=== PATIENT | female | born 1980 | race American Indian/Alaskan Native ===

== ENCOUNTER → 2017-08-03 15:16 | Outpatient (CLI) | payer OTHER, MEDICAID, SELFPAY ==
[2017-08-03 23:20] LABS: Urine N gonorrhoeae NOT DETECTED
[2017-08-03 23:21] LABS: Urine Chlamydia NOT DETECTED
== END ==
PROVIDERS: Family Provider Family Medicine; PCP Family Medicine; Visit Provider Family Medicine
DX: Z30.430 Encounter for insertion of intrauterine contraceptive device (principal)
CPT/HCPCS: 87491; 87591

== ENCOUNTER 2017-09-22 09:48 | Outpatient (CLI) | payer OTHER, MEDICAID, SELFPAY ==
[2017-09-22] VITALS (9 sets, daily range): BP systolic 87–109; BP diastolic 44–82; PULSE 62–84; RESP 16; TEMP 36.4; O2SAT 97–100
--- NOTE | 2017-09-22 09:52 | DI.RAD.S_ITS ---
PROCEDURE: PAIN L/SI FACET INJ/BLK 1STL INDICATIONS: Facet Arthropathy FINDINGS: Fluoroscopic spot filming was performed to verify placement of spinal needles at the L4-5 and L5-S1 level(s), as labeled on the films. Appropriate location(s) of the needle tip(s) was confirmed by injection of iodinated contrast. IMPRESSION: Documentation of facet injections Dictated by: Jeremy Huizar M.D. on 09/22/2017 at 13:19 Approved by: Jeremy Huizar M.D. on 09/22/2017 at 13:21
--- NOTE | 2017-09-22 11:20 | PM.PROC.1 ---
Procedures Date/Time Date of procedure: 09/22/17 Time of procedure: 11:21 General Procedure description: POST OP DIAGNOSIS 1. FACET ARTHROPATHY PROCEDURES 1. BILATERAL- L5 and S1 MB BLOCKS PHYSICIAN: DO CARYN Major Mamta is referred by Dr. Soares for treatment of Bilateral Axial LBP. DESCRIPTION OF PROCEDURE Fluoroscopically guided, contrast-controlled bilateral L5 and S1 medial branch blocks with 0.5cc of 0.5% Marcaine. Following denial of allergy and review of potential side effects and complications, including, but not necessarily limited to, infection, allergic reaction, local tissue breakdown, nerve injury, paralysis, stroke and possible , the patient indicated that the patient understood and agreed to proceed. An informed consent document was signed by the patient, witnessed by a nurse, and placed in the patient's chart. Per the patient request, IV conscious sedation was administered via 5mg of Versed to patient comfort. The patient's vital signs were monitored throughout the procedure by both the nurse and the physician without significant fluctuation. The patient remained conversant throughout the procedure. In the prone position, following sterile prep and drape of the lumbar region, the right L5 and S1 anatomical location of the medial branch of the dorsal ramus was identified fluoroscopically. Subsequently an anesthetic skin wheal using 1% lidocaine solution was initiated at each of the anatomical spots. Subsequently then a 22-gauge 3.5-inch spinal needle was atraumatically introduced and advanced under fluoroscopic guidance at each of the corresponding sites at the right L5 and S1 MB. After negative aspiration, 0.2 cc of Isovue 200 was injected, confirming placement without vascular or intrathecal uptake. Subsequently then 0.5 cc of 0.5% Marcaine solution was injected at each of the corresponding sites at the right L5 and S1 medial branch locations. The identical procedure was replicated on the left. The patient tolerated the procedure well without signs or symptoms of complications. Post-procedure, the patient was monitored initiating provocative activities to measure the amount of relief from block of the facetogenic pain. The patient reported a VAS of 7 prior to the procedure and a post-procedure VAS of 1. It has been a pleasure to assist in the diagnostic and therapeutic care of your patient. Total Fluoroscopy Time: 24.8 seconds Total Conscious Sedation Time: 24min POST OP INSTRUCTIONS The patient was provided with a Pain Log to complete over the next several hours and subsequent days prior to the patient's follow up with the ordering physician. 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 The patient is aware, was provided, once again, with a Pain Log and will follow up with the referring physician for review and clinical correlation Palmer Guillory DO
[2017-09-22] MEDS: MIDAZOLAM 5 MG/5 ML VIAL IV (11:27)
[2017-09-22] MEDS: BUPIVACAINE 0.5% (PF) 30 ML VIAL 5 ML INJ (11:38)
[2017-09-22] MEDS: LIDOCAINE 1% 20 ML INJ 10 ML INJ (11:38)
[2017-09-22] MEDS: IOPAMIDOL 15 ML VIAL 3 ML INJ (11:38)
== END 2017-09-22 12:14 | disposition home or self-care (01) ==
PROVIDERS: Family Provider Family Medicine; PCP Family Medicine; Visit Provider Physical Medicine & Rehabilitation
DX: M51.27 Other intervertebral disc displacement, lumbosacral region (principal); M46.96 Unspecified inflammatory spondylopathy, lumbar region
CPT/HCPCS: 64493; 64494; 99152; 99153; J2250

== ENCOUNTER → 2018-03-14 13:35 | Outpatient (CLI) | payer OTHER, MEDICAID, SELFPAY ==
--- NOTE | 2018-03-14 13:37 | DI.RAD.S_ITS ---
PROCEDURE: XR LUMBAR SPINE MIN 4V INDICATIONS: low back pain TECHNIQUE: 3 views of the lumbar spine were acquired. COMPARISON: None. FINDINGS: Bones: No fracture or focal osseous destruction. Anatomic alignment. Diffuse facet arthropathy. Trace dextrocurvature. Mild narrowing of the disc spaces from L3-S1 Soft tissues: Overlying bowel gas pattern is normal. No suspicious soft tissue calcifications. Incidentally IUD noted. IMPRESSION: Mild multilevel lumbar degeneration from L3-S1. Diffuse facet arthropathy and mild dextrocurvature. No fracture. Dictated by: Pablito Neely M.D. on 03/14/2018 at 14:29 Approved by: Pablito Neely M.D. on 03/14/2018 at 14:31
== END ==
PROVIDERS: Family Provider Family Medicine; PCP Family Medicine; Visit Provider Family Medicine
DX: M51.16 Intervertebral disc disorders with radiculopathy, lumbar region (principal); M47.26 Other spondylosis with radiculopathy, lumbar region; M47.27 Other spondylosis with radiculopathy, lumbosacral region; M51.17 Intervertebral disc disorders with radiculopathy, lumbosacral region; M54.5 Low back pain; M46.96 Unspecified inflammatory spondylopathy, lumbar region
CPT/HCPCS: 72100

== ENCOUNTER 2018-04-27 07:07 | Outpatient (CLI) | payer OTHER, MEDICAID, SELFPAY ==
[2018-04-27] VITALS (12 sets, daily range): BP systolic 107–127; BP diastolic 73–91; PULSE 64–76; RESP 16–18; O2SAT 97–100
--- NOTE | 2018-04-27 07:10 | DI.RAD.S_ITS ---
PROCEDURE: PAIN L/S MED/LAT N RFA BILAT INDICATIONS: SPINAL STENOSIS FINDINGS: Fluoroscopic spot filming was performed to verify placement of spinal needles at the bilateral L 4-5 and L5-S1 nerve root level(s), as labeled on the films. Appropriate location(s) of the needle tip(s) was confirmed by injection of iodinated contrast. IMPRESSION: Successful needle tip localization at the expected position of the bilateral nerve root regions detailed above. Dictated by: Shayan Ochoa M.D. on 04/27/2018 at 12:08 Approved by: Shayan Ochoa M.D. on 04/27/2018 at 12:09
[2018-04-27] MEDS: MIDAZOLAM 5 MG/5 ML VIAL IV (08:45)
[2018-04-27] MEDS: fentaNYL 100 MCG/2 ML INJ IV (08:57)
[2018-04-27] MEDS: BUPIVACAINE 0.5% (PF) VIAL 5 ML INJ (09:10)
[2018-04-27] MEDS: LIDOCAINE 1% 20 ML INJ 10 ML INJ (09:11)
[2018-04-27] MEDS: BETAMETHASONE 30 MG/5 ML MDV 12 MG INJ (09:12)
--- NOTE | 2018-04-27 09:29 | PC.NURSE ---
ASSISTING PT OFF TABLE AND TRANSPORTING TO POST PROC AREA IN STABLE CONDITION
--- NOTE | 2018-04-27 09:35 | P.PCN_ITS ---
Procedures Date/Time Date of procedure: 04/27/18 Time of procedure: 09:31 General Procedure description: Procedure Note PREOP DIAGNOSIS 1. RECALCITRANT FACET ARTHROPATHY, POST OP DIAGNOSIS 1. RECALCITRANT FACET ARTHROPATHY, PROCEDURES 1. BILATERAL L5 MEDIAL BRANCH RADIOFREQUENCY NEUROTOMY AND BILATERAL S1 DORSAL RAMUS BRANCH RADIOFREQUENCY NEUROTOMY. PHYSICIAN: Palmer Guillory DO INDICATIONS: Mamta is referred by Dr. Jamila de la cruz of facet arthropathy. DESCRIPTION OF PROCEDURE Bilateral L5 medial branch radiofrequency neurotomy and bilateral S1 dorsal ramus branch radiofrequency neurotomy under fluoroscopy with conscious sedation. The patient is well known to this clinic having undergone previous facet injections with good but temporary relief. The patient has experienced appropriate, concordant relief with previous facet and median branch blocks but the patient's pain has been recalcitrant to further conservative measures. Therefore, based upon the patient's relief and persistent symptoms, the patient is considered an appropriate candidate for facet rhizotomy. All of the patient' s questions regarding the risks versus benefits of the procedure, including, but not limited to, bleeding, infection, temporary as well as lasting nerve injury, paralysis, stroke, and , as well treatment alternatives were answered to satisfaction. After obtaining informed consent, denial of pertinent drug allergies, as well as being made aware of the potential risks of bleeding, infection, spinal cord trauma, paralysis, temporary and permanent nerve damage, seizure, stroke, and possible , the patient was brought to the fluoroscopy suite and positioned prone on the fluoroscopy table. The lumbar region was prepped with Betadine and covered with a fenestrated drape in the usual sterile fashion. Appropriate monitors applied including pulse oximeter, pulse, and blood pressure for regular monitoring throughout the procedure. After review of previous anaesthesic history and IV conscious sedation the patient was deemed safe to proceed with todays procedure with IV conscious sedation as ASA class II designation. Safety time-out was performed to confirm patient ID, procedure to be performed and site of procedure. IV sedation was accomplished with a combination of 5mg Versed and 50mcg Fentanyl administered by the RN after DO order, titrated to patient comfort during the course of the procedure while the patient remained responsive to all verbal commands. After local infiltration using 1% lidocaine, under fluoroscopic guidance, a 10- cm RF insulated needle with a 10-mm active tip was positioned parallel to the junction of the bilateral sacral ala and the superior articulating process where the S1 dorsal ramus resides. Needle placement was confirmed with motor stimulation of .5v on the right; motor stimulation of .6v on the left, which produced local stimulation without radicular component. The stimulation was then increased to 1.5v with, once again, only local multifidus stimulation without radicular component. This was then followed by two discreet lesions performed at 80 degrees Celsius for 90 seconds each. The needle was then removed and the identical procedure was performed along the length of the bilateral L5 medial branch with motor stimulation at .7v on the right; motor stimulation at .6v on the left. The patient tolerated the procedure well without signs or symptoms of complications prior to transfer to the recovery area continued monitoring without incident. The patient was then transferred to the recovery area where they were observed for an appropriate period of time after the injection. The patient reported a VAS score of 9 prior to the procedure and a post- procedure VAS of 0. Total Fluoroscopy Time: 32.1 seconds Total Conscious Sedation Time: 46min POST OP INSTRUCTIONS The patient was provided a Pain Log to continue to record the patient's response to the target-specific procedure prior to the patient's follow-up visit with the referring physician. Additionally, specific post-injection care instructions and a contact number to our office were provided if concerns arise regarding possible complications associated with the procedure are suspected. Palmer Guillory DO Complications: none
--- NOTE | 2018-04-27 09:42 | PC.NURSE ---
pt returned from procedure awake and alert, able to move from w/c to chair on own. Resumed monitoring from Alisia GEIGER.
== END 2018-04-27 09:47 ==
LOC: RAD 07:08
PROVIDERS: Family Provider Family Medicine; PCP Family Medicine; Visit Provider Physical Medicine & Rehabilitation
DX: M47.817 Spondylosis without myelopathy or radiculopathy, lumbosacral region (principal)
CPT/HCPCS: 64635; 99152; 99153; J0702; J2250; J3010

== ENCOUNTER → 2018-10-04 14:22 | Outpatient (CLI) | payer OTHER, SELFPAY ==
--- NOTE | 2018-10-04 14:24 | DI.RAD.S_ITS ---
PROCEDURE: XR FOOT RT MIN 3V INDICATIONS: Right foot pain TECHNIQUE: 3 views of the foot were acquired. COMPARISON: None. FINDINGS: Bones: No fractures or dislocations. No suspicious bony lesions. Mild plantar calcaneal spurring. Soft tissues: No tibiotalar joint effusion. Achilles tendon appears normal. IMPRESSION: No acute bony injuries. Dictated by: Anitha Morley M.D. on 10/04/2018 at 14:51 Approved by: Anitha Morley M.D. on 10/04/2018 at 14:53
== END ==
PROVIDERS: Family Provider Family Medicine; PCP Family Medicine; Visit Provider Physician Assistant
DX: M79.671 Pain in right foot (principal); M77.31 Calcaneal spur, right foot
CPT/HCPCS: 73630

== ENCOUNTER → 2019-01-26 14:45 | Outpatient (CLI) | payer OTHER, SELFPAY ==
--- NOTE | 2019-01-26 | DI.RAD.S_ITS ---
PROCEDURE: XR HAND RT 2V INDICATIONS: pain TECHNIQUE: 3 views of the hand(s) acquired. COMPARISON: [facility], CR, XR WRIST RT 2V, 01/26/2019, 14:59. FINDINGS: Bones: No fractures or dislocations. Carpal bones are normally aligned. No suspicious bony lesions. Soft tissues: No suspicious soft tissue calcifications. IMPRESSION: No visualized acute fracture or dislocation. However, if clinical concern and/or pain persist, short interval imaging followup in 7-10 days is recommended, as occult injury cannot be definitively excluded. Dictated by: Ronel Horvath M.D. on 01/26/2019 at 17:53 Approved by: Ronel Horvath M.D. on 01/26/2019 at 17:54
--- NOTE | 2019-01-26 | DI.RAD.S_ITS ---
PROCEDURE: XR WRIST LT 2V INDICATIONS: pain TECHNIQUE: 2 views of the wrist were acquired. COMPARISON: [facility], CR, XR HAND LT 2V, 01/26/2019, 14:59. FINDINGS: Bones: No fractures or dislocations. No suspicious bony lesions. Scaphoid view: Not obtained Soft tissues: No suspicious soft tissue calcifications. IMPRESSION: No visualized acute fracture or dislocation. However, if clinical concern and/or pain persist, short interval imaging followup in 7-10 days is recommended, as occult injury cannot be definitively excluded. Dictated by: Ronel Horvath M.D. on 01/26/2019 at 17:53 Approved by: Ronel Horvath M.D. on 01/26/2019 at 17:53
--- NOTE | 2019-01-26 | DI.RAD.S_ITS ---
PROCEDURE: XR WRIST RT 2V INDICATIONS: pain TECHNIQUE: 2 views of the wrist were acquired. COMPARISON: [facility], CR, XR HAND RT 2V, 01/26/2019, 14:59. FINDINGS: Bones: No fractures or dislocations. No suspicious bony lesions. Scaphoid view: Not obtained Soft tissues: No suspicious soft tissue calcifications. IMPRESSION: No visualized acute fracture or dislocation. However, if clinical concern and/or pain persist, short interval imaging followup in 7-10 days is recommended, as occult injury cannot be definitively excluded. Dictated by: Ronel Horvath M.D. on 01/26/2019 at 17:52 Approved by: Roenl Horvath M.D. on 01/26/2019 at 17:53
--- NOTE | 2019-01-26 | DI.RAD.S_ITS ---
PROCEDURE: XR HAND LT 2V INDICATIONS: CONSTIPATION UNSPECIFIED TECHNIQUE: 2 views of the hand(s) acquired. COMPARISON: [facility], CR, XR WRIST LT 2V, 01/26/2019, 14:59. FINDINGS: Bones: No fractures or dislocations. Carpal bones are normally aligned. No suspicious bony lesions. Soft tissues: No suspicious soft tissue calcifications. IMPRESSION: No visualized acute fracture or dislocation. However, if clinical concern and/or pain persist, short interval imaging followup in 7-10 days is recommended, as occult injury cannot be definitively excluded. Dictated by: Ronel Horvath M.D. on 01/26/2019 at 17:54 Approved by: Ronel Horvath M.D. on 01/26/2019 at 17:54
--- NOTE | 2019-01-26 | DI.RAD.S_ITS ---
PROCEDURE: XR ABDOMEN 1V INDICATIONS: CONSTIPATION UNSPECIFIED TECHNIQUE: One view of the abdomen acquired. COMPARISON: [facility], CT, CT ABDOMEN PELVIS WITH CONTRAST, 01/25/2017, 17:49. FINDINGS: Surgical changes and devices: Intrauterine device is present to the left of midline within the lower pelvis. Bowel: Bowel gas pattern is normal. Moderate stool. Soft tissues: No suspicious abdominal calcifications. Visualized solid organ contours appear normal in size. Bones: No suspicious bony lesions. IMPRESSION: Moderate stool without obstruction. Dictated by: Ronel Horvath M.D. on 01/26/2019 at 17:54 Approved by: Ronel Horvath M.D. on 01/26/2019 at 17:55
== END ==
PROVIDERS: Family Provider Family Medicine; PCP Family Medicine; Visit Provider Physician Assistant
DX: K59.00 Constipation, unspecified (principal); M25.532 Pain in left wrist; M25.531 Pain in right wrist; M79.641 Pain in right hand
CPT/HCPCS: 73100; 73120; 74018

== ENCOUNTER 2019-08-26 05:50 | Emergency (ER) | payer OTHER, MEDICAID, SELFPAY ==
[2019-08-26 05:59] VITALS: BP 139/80; PULSE 79; RESP 18; TEMP 37.1; O2SAT 98
--- NOTE | 2019-08-26 05:59 | ED_ITS ---
HPI - General Adult General Chief complaint: Urogenital-Female Stated complaint: right side pain thinks uti Time Seen by Provider: 08/26/19 05:58 History of Present Illness HPI narrative: 38-year-old woman with a history of frequent urinary tract infections who complains of right-sided flank/abdominal/back pain intermittently for about 2 weeks and over the last 2 days it has began hurting more in the right flank and radiating to the right groin with dysuria developing. She states she has had similar symptoms and sometimes it will go away and sometimes it and that being a bladder infection. Most recently she was seen at [facility] approximately 6 months ago and was treated with a single dose of medicine that she drank as a liquid. She denies hematuria, no significant change to vaginal discharge, no deep pelvic pain, no new sexual partners. She denies fever, cough, chills, diarrhea but does note intermittent constipation, worse in the last week. Related Data Previous Rx's Medication Instructions Recorded tramadol 50 mg tablet 50 mg PO TID PRN #60 tab 03/24/18 diazepam [Valium] 10 mg PO BEDTIME PRN #10 tab 04/27/18 tramadol 50 mg PO Q8H PRN #60 tab 04/27/18 albuterol sulfate 90 mcg/actuation 1 inh INHALATION Q4-6H PRN #18 gram 05/28/18 aerosol inhaler benzonatate 100 mg capsule 100 mg PO BEDTIME #20 cap 05/28/18 sulfamethoxazole-trimethoprim 1 tab PO BID #14 tab 08/26/19 Allergies Allergy/AdvReac Type Severity Reaction Status Date / Time No Known Drug Allergies Allergy Verified 10/04/18 15:12 Review of Systems Review of Systems Narrative: Pertinent positive and negative findings as per HPI Remainder of review of systems is otherwise unremarkable for Constitutional: Fevers, chills, weakness ENT: No sore throat, neck pain, ear pain CV: Chest pain, palpitations, dyspnea on exertion Respiratory: Cough, wheeze, dyspnea MS: Muscle weakness, numbness, joint swelling or warmth Skin: Rashes, nonhealing lesions Neuro: Syncope, dizziness, tingling Psych: Depression, anxiety, suicidal ideation Patient History Medical History (Updated 08/26/19 @ 06:45 by Mariana Romo MD) Bulimia (Chronic) Cardiac arrhythmia (Chronic) Depression (Chronic) Frequent UTI (Chronic) Herniated nucleus pulposus, L5-S1 (Inactive) Migraine (Acute) Reactive airway disease (Acute) Scoliosis (Chronic) Surgical History Anesthesia (Resolved) History of tonsillectomy (Resolved 2005) Status post tubal ligation (Resolved 04/21/06) Social History pets and animals: No education level: high school working smoke detector in home: Yes fire extinguisher in home: Yes carbon monox detector in home: Yes firearms in home: No Smoking Status: Former smoker alcohol intake: current substance use type: does not use during the past year weight has: decreased > 10 lbs well-balanced diet: rarely or never daily servings fruits/ve-1 caffeine: Yes (1-2 caffeine drinks per day) eating out: 1-3 times/week Type(s) of exercise: walking and other frequency: daily Smoking Status: Former smoker Exam Narrative Exam Narrative: General: Healthy appearing, in no acute distress. Able to give a complete and coherent history. Well-nourished well-developed HEENT: Moist mucous membranes, normal sclera with reactive pupils, Neck: No JVD, supple Respiratory: Lungs are clear to auscultation, no wheezing no rales no rhonchi. Full and symmetrical air movement Cardiac: Regular rate and rhythm no murmurs no bruits Abdomen: Soft, mild suprapubic tenderness, good bowel tones, mild right flank/paraspinous pain Skin: Warm and dry, no rashes Neurologic: Grossly neurologically intact with no obvious asymmetries or abnormalities Extremities: No trauma, well perfused Psych: Cooperative, appropriate insight and affect Initial Vital Signs Initial Vital Signs: Vital Signs Temperature 98.7 F 08/26/19 05:59 Pulse Rate 79 08/26/19 05:59 Respiratory Rate 18 08/26/19 05:59 Blood Pressure 139/80 08/26/19 05:59 Pulse Oximetry 98 08/26/19 05:59 Course Orders Ordered: ED Orders 08/26/19 06:00 Urinalysis and Microscopic Stat Urine Culture Stat Discontinued Medications Trimethoprim/Sulfamethoxazole (Bactrim Ds) 1 tab PO NOW ONE Stop: 08/26/19 06:42 Vital Signs Vital signs: Vital Signs - 8 hr 08/26/19 05:59 Temperature 98.7 F Pulse Rate 79 Respiratory Rate 18 Blood Pressure 139/80 Pulse Oximetry 98 Medical Decision Making Medical Records Medical records reviewed: Yes I reviewed the patient's medical records. Lab Data Lab results narrative: Urinalysis has leukocyte esterase nitrates and blood. Labs: Lab Results 08/26/19 Range/Units 06:00 Urine Color Yellow Urine Appearance Slightly cloudy Urine pH 7.0 (4.5-8.0) Ur Specific Irving 1.010 (1.000-1.035) Urine Protein Negative (Negative) Urine Glucose (UA) Negative (Negative) g/dL Urine Ketones Negative (NEGATIVE) Urine Occult Blood 1+ H (Negative) Urine Nitrate Negative (Negative) Urine Bilirubin Negative (NEGATIVE) Urine Urobilinogen 0.2 (0.2) E.U./dL Ur Leukocyte Esterase 3+ H (NEGATIVE) Urine RBC 0-1/hpf (0-5/HPF) Urine WBC 1-5/hpf (0-5/HPF) Ur Squamous Epith Cells 1-5 /hpf (0-5/HPF) Urine Bacteria Few (2-10) H (None) Ur Culture Indicated? Specimen cultured MDM Narrative Medical decision making narrative: 38-year-old woman with flank pain that on clinical exam is more tender in the right paraspinous area and is reproducible with paraspinous muscle palpation than actual flank pain. Suspect musculoskeletal etiology. She also has what looks like a simple UTI that is been present for approximately 2 days. No fevers or other symptoms to suggest pyelonephritis. Will treat with 5 days of Septra. She is safe for home discharge Discharge Plan Departure Patient Disposition: Home Clinical Impression: Cystitis Back pain Qualifiers: Back pain location: back pain in other location Chronicity: chronic Qualified Code(s): M54.9 - Dorsalgia, unspecified Instructions: DI for Urinary Tract Infection (UTI) Activity Restrictions/Additional Instructions: Thank you for coming in today Your urine does in fact look like you have a bladder infection. I am going to place you on 5 days of Septra, an antibiotic, to alleviate the symptoms. 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 The pain that you are noticing in your neck and shoulders is likely musculoskeletal and related to the stress of work recently. The lower back pain is also likely musculoskeletal but may be exacerbated by your chronic constipation. Please do take the laxative that you have at home to see if that can help. If you develop new or worsening symptoms, fevers or have other concerns, please return to the emergency room and I am happy to re-evaluate I hope these next 3 days off will help you catch up on your sleep, relax a bit to help with the back pain. The a UTI symptoms should be significantly improved within 1-2 days on the antibiotics Prescriptions: New sulfamethoxazole-trimethoprim 800-160 mg tablet 1 tab PO BID Qty: 14 RF: 0 No Action benzonatate 100 mg capsule 100 mg PO BEDTIME Qty: 20 RF: 0 albuterol sulfate 90 mcg/actuation HFA aerosol inhaler 1 inh INHALATION Q4-6H PRN (Reason: shortness of breath) Qty: 18 RF: 0 tramadol 50 mg tablet 50 mg PO Q8H PRN (Reason: pain) Qty: 60 RF: 1 diazepam [Valium] 10 mg tablet 10 mg PO BEDTIME PRN (Reason: muscle spasm) Qty: 10 RF: 0 tramadol 50 mg tablet 50 mg PO TID PRN (Reason: pain) Qty: 60 RF: 1 Referrals: Jazzmine Soares MD [Primary Care Provider] -
[2019-08-26 06:21] LABS: Bilirubin Urine UA NEGATIVE (NEGATIVE); Color Urine UA YELLOW; Glucose Urine UA NEGATIVE (Negative); Ketones Urine UA NEGATIVE (NEGATIVE); Leukocyte Esterase Urine UA 3+ (NEGATIVE); Nitrite Urine UA NEGATIVE (Negative); Occult Blood Urine UA 1+ (Negative); Protein Urine UA NEGATIVE (Negative); Urobilinogen Urine UA 0.2 E.U./dL (0.2)
[2019-08-26 06:37] LABS: Appearance Urine UA Slightly Cloudy
[2019-08-26 06:38] LABS: Bacteria Urine Few (2-10); Culture Indicated Urine Specimen Cultured; RBC Urine 0-1/HPF (0-5/HPF); Squamous Epithelial Cell Urine 1-5 /HPF (0-5/HPF); WBC Urine 1-5/HPF (0-5/HPF)
[2019-08-26] MEDS: TRIMETH/SULFA 160/800 (DS) TABLET 1 TAB PO (07:30)
[2019-08-26 07:50] VITALS: BP 144/72; PULSE 68; RESP 16; O2SAT 98
== END 2019-08-26 07:50 | disposition home or self-care (01) ==
PROVIDERS: Emergency Provider Emergency Medicine; Family Provider Family Medicine; PCP Family Medicine
DX: N30.90 Cystitis, unspecified without hematuria (principal); M54.9 Dorsalgia, unspecified
CPT/HCPCS: 81001; 87077; 87086; 87147; 99283

== ENCOUNTER → 2019-09-05 13:44 | Outpatient (CLI) | payer OTHER, MEDICAID, SELFPAY | PROVIDERS: Family Provider Family Medicine; PCP Family Medicine; Visit Provider Family Medicine | DX: M54.9 Dorsalgia, unspecified (principal) | CPT/HCPCS: 87086 ==

== ENCOUNTER → 2019-09-07 14:11 | Outpatient (CLI) | payer OTHER, MEDICAID, SELFPAY ==
[2019-09-07 14:59] LABS: Appearance Urine UA CLEAR; Bilirubin Urine UA NEGATIVE (NEGATIVE); Color Urine UA YELLOW; Glucose Urine UA NEGATIVE (Negative); Ketones Urine UA NEGATIVE (NEGATIVE); Leukocyte Esterase Urine UA 1+ (NEGATIVE); Nitrite Urine UA NEGATIVE (Negative); Occult Blood Urine UA 2+ (Negative); Protein Urine UA NEGATIVE (Negative); Urobilinogen Urine UA 0.2 E.U./dL (0.2)
[2019-09-07 15:02] LABS: Amorphous Sediment Urine 1+; Bacteria Urine Few (2-10); Culture Indicated Urine Specimen Cultured; Mucus Urine 1+ (Negative); RBC Urine 1-5/HPF (0-5/HPF); Squamous Epithelial Cell Urine 1-5 /HPF (0-5/HPF); WBC Urine 5-10/HPF (0-5/HPF)
== END ==
PROVIDERS: Family Provider Family Medicine; PCP Family Medicine; Referring Provider Family Medicine; Visit Provider Family Medicine
DX: R10.9 Unspecified abdominal pain (principal); R31.9 Hematuria, unspecified
CPT/HCPCS: 81001; 87086

== ENCOUNTER → 2019-09-15 08:28 | Outpatient (CLI) | payer OTHER, MEDICAID, SELFPAY ==
--- NOTE | 2019-09-15 08:30 | DI.US.S_ITS ---
PROCEDURE: US ABDOMEN COMPLETE INDICATIONS: RIGHT LOWER QUADRANT PAIN TECHNIQUE: Real-time scanning was performed of the abdominal and retroperitoneal organs, with image documentation. COMPARISON: CT, CT ABDOMEN PELVIS WITH CONTRAST, 01/25/2017, 17:49. FINDINGS: Liver: Liver is diffusely increased in echogenicity. No focal hepatic abnormalities identified. Normal hepatic size. Gallbladder: No gallstones identified. Normal gallbladder wall. No pericholecystic fluid. Negative sonographic Archibald sign. Biliary ducts: Intrahepatic bile ducts are non-dilated. Extrahepatic bile duct caliber measures 4.6 mm. Normal is 6-7 mm or less in diameter, or 10 mm or less post-cholecystectomy. Pancreas: Not well-visualized. Spleen: Spleen is normal in size and homogeneous in echotexture. Kidneys: Kidneys are normal in size and echotexture. Right kidney measures 11.6 cm long; left kidney measures 12.5 cm long. No hydronephrosis or nephrolithiasis. No solid masses. Aorta: Visualized aorta is normal in caliber at less than 3 cm. Iliacs: Proximal common iliac arteries are normal in caliber at less than 2.5 cm. IVC: Intrahepatic inferior vena cava is patent. Miscellaneous: No free abdominal fluid. IMPRESSION: Increased hepatic echogenicity noted possibly related to hepatic steatosis but other sources of hepatocellular disease cannot be excluded. Recommend clinical correlation. Dictated by: Mariano MADDEN Interpreted: Shruthi Herring MD on 09/15/2019 at 9:50 Approved by: Shruthi Herring MD, PhD on 09/15/2019 at 14:30
--- NOTE | 2019-09-15 08:30 | DI.US.S_ITS ---
PROCEDURE: US PELVIC COMPLETE INDICATIONS: RIGHT LOWER QUADRANT PAIN TECHNIQUE: Real-time scanning was performed of the pelvic organs, with image documentation. Additional endovaginal scanning was necessary due to incomplete visualization of the adnexal and endometrial structures by transabdominal scanning. COMPARISON: [facility], CT, KIDNEY/ URETER/BLADDER, 08/08/2015, 10:51. [facility], CT, ABDOMEN/PELVIS WITH CONTRAST, 07/14/2016, 21:21. [facility], US, US ABDOMEN COMPLETE, 09/15/2019, 8:39. [facility], US, PELVIC COMPLETE, 10/30/2016, 16:19. FINDINGS: Transabdominal scanning: No pathologic free abdominal or pelvic fluid. On the accompanying abdominal ultrasound, the kidneys demonstrate a normal appearance. Endovaginal scanning: Uterus: Uterus is normal in size at 9 x 4.3 x 4.3 cm. The endometrium measures 8 mm in combined thickness. An IUD is seen at its expected location. Ovaries: The left ovary is not seen. The right ovary measures 3.3 x 3.3 x 3.9 cm. Within the right ovary, there is a 2.8 x 2.5 x 2.4 cm cyst with a mural nodule seen. No adnexal masses are seen. IMPRESSION: No imaging explanation is found for this patient's presenting history of right lower quadrant pain. The right ovary demonstrates a mildly complicated cyst in demonstrates a mural nodule. At clinical discretion, a followup pelvic ultrasound is suggested in 6 weeks to assure resolution/ improvement. An IUD is seen at its expected location. Left ovary not seen. Dictated by: Tnoy Porter M.D. on 09/15/2019 at 9:10 Approved by: Tony Porter M.D. on 09/15/2019 at 9:13
== END ==
PROVIDERS: Family Provider Family Medicine; PCP Family Medicine; Referring Provider Family Medicine; Visit Provider Family Medicine
DX: R31.9 Hematuria, unspecified (principal); R10.31 Right lower quadrant pain; N83.291 Other ovarian cyst, right side; Z97.5 Presence of (intrauterine) contraceptive device
CPT/HCPCS: 76700; 76830; 76856

== ENCOUNTER → 2019-09-18 13:14 | Outpatient (CLI) | payer OTHER, MEDICAID, SELFPAY ==
[2019-09-18 13:18] LABS: Bacteria Urine None Seen
[2019-09-18 13:25] LABS: Appearance Urine UA CLEAR; Bilirubin Urine UA NEGATIVE (NEGATIVE); Color Urine UA YELLOW; Glucose Urine UA NEGATIVE (Negative); Ketones Urine UA NEGATIVE (NEGATIVE); Leukocyte Esterase Urine UA 1+ (NEGATIVE); Nitrite Urine UA NEGATIVE (Negative); Occult Blood Urine UA TRACE-INTACT (Negative); Protein Urine UA NEGATIVE (Negative); Specific Gravity Urine UA 1.015 (1.000-1.035); Urobilinogen Urine UA 0.2 E.U./dL (0.2)
[2019-09-18 13:36] LABS: Culture Indicated Urine Cult Not Indicated; RBC Urine 1-5/HPF (0-5/HPF); Squamous Epithelial Cell Urine 5-10 /HPF (0-5/HPF); WBC Urine 5-10/HPF (0-5/HPF)
== END ==
PROVIDERS: Family Provider Family Medicine; PCP Family Medicine; Visit Provider Obstetrics & Gynecology
DX: R10.2 Pelvic and perineal pain (principal); R82.79 Other abnormal findings on microbiological examination of urine; R30.0 Dysuria
CPT/HCPCS: 81001; 87086

== ENCOUNTER 2019-10-01 12:47 | Emergency (ER) | payer OTHER, MEDICAID, SELFPAY ==
[2019-10-01 12:58] VITALS: BP 125/91; PULSE 89; RESP 16; TEMP 36.1; O2SAT 98; BMI 39.6
--- NOTE | 2019-10-01 13:22 | ED.EAR ---
HPI - Ear Problem General Chief complaint: Ear Stated complaint: Left Side Face Swelling and Pain Time Seen by Provider: 10/01/19 12:58 Source: patient Mode of arrival: Ambulatory Limitations: no limitations History of Present Illness HPI Narrative: The patient is a 38-year-old female who presents with sudden onset of left-sided facial and your swelling. She does suffer from bulimia states that she actually does pretty well she made herself vomit but she says she can do it without forcing it she vomited 20 minutes prior to the facial swelling. She says she was lying on the couch when suddenly she felt left side of her face to swell and she felt some numbness and tingling. Her children a saw that her ear was swollen as well. She tried to put a Q-tip in her ear and was unable to. She at no time had any difficulty breathing swallowing or speaking. She says it seems to be improving but she still has some tingling and can feel that it is a little bit swollen. She continues to breathe easy and manage her own secretions MD Complaint: ear pain Location: left ear Related Data Home Medications Medication Instructions Recorded Confirmed levonorgestrel 20 mcg/24 hours (5 INTRAUTERINE 09/18/19 09/18/19 yrs) 52 mg intrauterine device tamsulosin 0.4 mg capsule 0.4 mg PO DAILY 09/18/19 09/18/19 Previous Rx's Medication Instructions Recorded albuterol sulfate 90 mcg/actuation 1 inh INHALATION Q4-6H PRN #18 gram 05/28/18 aerosol inhaler Allergies Allergy/AdvReac Type Severity Reaction Status Date / Time No Known Drug Allergies Allergy Verified 10/01/19 12:57 Review of Systems Review of Systems ROS Unobtainable: All systems reviewed & are unremarkable except as noted in HPI and below Constitutional Constitutional: Denies chills, Denies fever(s), Denies lethargy and Denies weakness Eyes Eyes: Denies blurry vision, Denies exophthalmos and Denies diplopia ENT Ears, Nose, Mouth, and Throat: Reports as per HPI Cardiovascular Cardiovascular: Denies chest pain, Denies irregular heart rhythm, Denies lightheadedness, Denies palpitations, Denies dyspnea, Denies dyspnea on exertion and Denies orthopnea Respiratory Respiratory: Denies cough, Denies dyspnea, Denies dyspnea on exertion and Denies wheezing Gastrointestinal Gastrointestinal: Denies abdominal pain, Denies change in bowel habits, Denies diarrhea, Denies nausea and Denies vomiting Integumentary/Breasts Skin/Breast: Denies pruritus, Denies erythema, Denies rash and Denies wounds Neurologic Neurologic: Denies weakness Endocrine Endocrine: Denies palpitations Allergic/Immunologic Allergic/Immunologic: Denies wheezing Patient History Medical History Bulimia (Chronic) Cardiac arrhythmia (Chronic) Depression (Chronic) Frequent UTI (Chronic) Herniated nucleus pulposus, L5-S1 (Inactive) Migraine (Acute) Reactive airway disease (Acute) Scoliosis (Chronic) Surgical History Anesthesia (Resolved) History of tonsillectomy (Resolved 2005) Status post tubal ligation (Resolved 04/21/06) Social History pets and animals: No education level: high school working smoke detector in home: Yes fire extinguisher in home: Yes carbon monox detector in home: Yes firearms in home: No Smoking Status: Former smoker alcohol intake: current substance use type: does not use during the past year weight has: decreased > 10 lbs well-balanced diet: rarely or never daily servings fruits/ve-1 caffeine: Yes (1-2 caffeine drinks per day) eating out: 1-3 times/week Type(s) of exercise: walking and other frequency: daily Smoking Status: Former smoker alcohol intake frequency: a few times a month Substance Use Type: marijuana Exam Initial Vital Signs Initial Vital Signs: Vital Signs Temperature 97 F L 10/01/19 12:58 Pulse Rate 89 10/01/19 12:58 Respiratory Rate 16 10/01/19 12:58 Blood Pressure 125/91 H 10/01/19 12:58 Pulse Oximetry 98 10/01/19 12:58 GENERAL: Well-appearing, well-nourished and in no acute distress. HEENT: Head atraumatic,EOMI, pupils reactive, minimal left-sided facial swelling, managing own secretions EARS: Tympanic membranes visualized, no erythema or bulging, no hemotympanum CARDIOVASCULAR: Regular rate and rhythm without murmurs, rubs or gallops. RESPIRATORY: Breath sounds equal bilaterally, no wheezes rales or rhonchi. ABDOMEN: Soft, nontender. Normoactive bowel sounds all 4 quadrants. No guarding or rebound. EXTREMITIES: Normal range of motion, no clubbing or edema. Neurovascularly intact NEUROLOGICAL: Alert and oriented x4.Normal gait and speech SKIN: Warm, dry, no laceration, no petechiae, no rashes or lesions. Course Orders Ordered: Discontinued Medications Ibuprofen (Advil) 800 mg PO NOW ONE Stop: 10/01/19 13:24 Last Admin: 10/01/19 13:30 Dose: 800 mg Documented by: RENALDO Vital Signs Vital signs: Vital Signs - 8 hr 10/01/19 12:58 Temperature 97 F L Pulse Rate 89 Respiratory Rate 16 Blood Pressure 125/91 H Pulse Oximetry 98 Medical Decision Making [facility] Narrative Medical decision making narrative: Patient has minimal swelling to the left side of her face she has no airway compromise or difficulty swallowing. Something happened suddenly and seems to be improving. Possible inflammatory response. She is given a dose ibuprofen. She also is apparently on antibiotics for UTI and is scheduled to have an outpatient CT for possible kidney stone. She says that she denies any rash I do not think this to be an allergic reaction, seeing as though it is only 1 sided and improving so quickly. Discharge Plan Departure Patient Disposition: Home Clinical Impression: Facial swelling Discharge Date/Time: 10/01/19 13:50 Instructions: DI for General Allergic Reactions Activity Restrictions/Additional Instructions: *You have been diagnosed with facial swelling *What to do: Unclear exactly what is causing your facial swelling, however it seems to be improving. *Continue to take medications as directed *Follow up with your primary care provider in 2-3 days *Return to ER if you should have increased swelling difficulty swallowing, difficulty breathing or any new, worsening or concerning symptoms Prescriptions: No Action albuterol sulfate 90 mcg/actuation HFA aerosol inhaler 1 inh INHALATION Q4-6H PRN (Reason: shortness of breath) Qty: 18 RF: 0 Mirena 20 mcg/24 hours (5 yrs) 52 mg intrauterine device intrauterine RF: 0 tamsulosin 0.4 mg capsule 0.4 mg PO DAILY RF: 0 Referrals: Jazzmine Soares MD [Primary Care Provider] -
[2019-10-01] MEDS: IBUPROFEN 400 MG TABLET 800 MG PO (13:30)
== END 2019-10-01 13:50 | disposition home or self-care (01) ==
PROVIDERS: Emergency Provider Emergency Medicine; Family Provider Family Medicine; PCP Family Medicine
DX: R22.0 Localized swelling, mass and lump, head (principal); H92.02 Otalgia, left ear
CPT/HCPCS: 99281; 99282

== ENCOUNTER → 2019-10-13 09:39 | Outpatient (CLI) | payer OTHER, MEDICAID, SELFPAY ==
[2019-10-13 10:42] LABS: Appearance Urine UA SL CLOUDY; Bilirubin Urine UA NEGATIVE (NEGATIVE); Color Urine UA YELLOW; Glucose Urine UA NEGATIVE (Negative); Ketones Urine UA NEGATIVE (NEGATIVE); Leukocyte Esterase Urine UA 2+ (NEGATIVE); Nitrite Urine UA NEGATIVE (Negative); Occult Blood Urine UA 2+ (Negative); Protein Urine UA TRACE (Negative); Specific Gravity Urine UA 1.025 (1.000-1.035); Urobilinogen Urine UA 0.2 E.U./dL (0.2)
[2019-10-13 11:15] LABS: Bacteria Urine Many (>30); Mucus Urine 2+ (Negative); RBC Urine 1-5/HPF (0-5/HPF); Squamous Epithelial Cell Urine 10-30 /HPF (0-5/HPF); WBC Urine 5-10/HPF (0-5/HPF)
== END ==
PROVIDERS: Family Provider Family Medicine; PCP Family Medicine; Referring Provider Family Medicine; Visit Provider Family Medicine
DX: R30.0 Dysuria (principal); R35.0 Frequency of micturition; R39.15 Urgency of urination; R31.29 Other microscopic hematuria
CPT/HCPCS: 81001; 87086

== ENCOUNTER → 2019-10-16 09:30 | Outpatient (CLI) | payer OTHER, MEDICAID, SELFPAY ==
--- NOTE | 2019-10-16 09:31 | DI.CT.S_ITS ---
PROCEDURE: CT KIDNEY URETER BLADDER (KUB) INDICATIONS: hematuria, pain TECHNIQUE: Noncontrast 5 mm thick sections acquired from the diaphragms to the symphysis. 5 mm thick coronal and sagittal reformats were then performed. For radiation dose reduction, the following was used: automated exposure control, adjustment of mA and/or kV according to patient size. COMPARISON: [facility], US, US PELVIC COMPLETE, 09/15/2019, 9:02. [facility], US, US ABDOMEN COMPLETE, 09/15/2019, 8:39. [facility], CR, XR ABDOMEN 1V, 01/26/2019, 14:59. [facility], CT, KIDNEY/ URETER/BLADDER, 08/08/2015, 10:51. FINDINGS: Image quality: Excellent. Lung bases: Lung bases are clear. Heart size is normal. Urinary system: Both kidneys are normal in size. No kidney stones. No hydronephrosis or perinephric fat stranding. Both ureters appear non-dilated throughout their expected courses. Bladder wall thickness is normal; no calcified bladder stones. Other solid organs: Liver is normal in size. Gallbladder appears normal . Pancreas is normal in contours. Spleen is normal in size. No adrenal nodules. Peritoneum and bowel: Unenhanced bowel loops demonstrate normal wall thickness and caliber. No free fluid or air. Nodes and vessels: No retroperitoneal or mesenteric adenopathy by size criteria. Aorta and inferior vena cava are normal in caliber. Abdominal wall: No ventral hernias. Pelvis: No free pelvic fluid. No inguinal hernias or adenopathy. A centrally positioned IUD is noted within the endometrial space Bones: No suspicious bony lesions. No vertebral body compression fractures. . IMPRESSION: A urinary tract stone is not seen, a source of hematuria and pain is not identified. There is a centrally positioned IUD within the endometrial space. No ovarian pathology is identified. Dictated by: Shayan Ochoa M.D. on 10/16/2019 at 12:38 Approved by: Shayan Ochoa M.D. on 10/16/2019 at 12:52
== END ==
PROVIDERS: Family Provider Family Medicine; PCP Family Medicine; Referring Provider Family Medicine; Visit Provider Family Medicine
DX: R31.29 Other microscopic hematuria (principal); M54.9 Dorsalgia, unspecified; R10.9 Unspecified abdominal pain; G89.29 Other chronic pain; Z97.5 Presence of (intrauterine) contraceptive device
CPT/HCPCS: 74176

== ENCOUNTER → 2019-10-20 07:56 | Outpatient (CLI) | payer OTHER, MEDICAID, SELFPAY ==
[2019-10-20 09:26] LABS: Appearance Urine UA CLEAR; Bilirubin Urine UA NEGATIVE (NEGATIVE); Color Urine UA YELLOW; Glucose Urine UA NEGATIVE (Negative); Ketones Urine UA NEGATIVE (NEGATIVE); Leukocyte Esterase Urine UA 1+ (NEGATIVE); Nitrite Urine UA NEGATIVE (Negative); Occult Blood Urine UA 1+ (Negative); Protein Urine UA NEGATIVE (Negative); Specific Gravity Urine UA <=1.005 (1.000-1.035); Urobilinogen Urine UA 0.2 E.U./dL (0.2)
[2019-10-20 09:28] LABS: pH Urine UA 6.5 (4.5-8.0)
[2019-10-20 10:02] LABS: Bacteria Urine Few (2-10); Culture Indicated Urine Specimen Cultured; Mucus Urine 1+ (Negative); RBC Urine 0-1/HPF (0-5/HPF); Squamous Epithelial Cell Urine 1-5 /HPF (0-5/HPF); WBC Urine 1-5/HPF (0-5/HPF)
[2019-10-25 13:36] LABS: Chlamydia trachomatis Negative (Negative); Mycoplasma genitalium Negative (Negative); Neisseria gonorrhoeae Negative (Negative)
== END ==
PROVIDERS: Family Provider Family Medicine; PCP Family Medicine; Referring Provider Family Medicine; Visit Provider Family Medicine
DX: R30.0 Dysuria (principal); R31.29 Other microscopic hematuria; R10.9 Unspecified abdominal pain
CPT/HCPCS: 81001; 87070; 87077; 87086; 87147; 87205; 87210; 87491; 87591

== ENCOUNTER → 2019-11-01 09:35 | Outpatient (CLI) | payer OTHER, MEDICAID, SELFPAY ==
--- NOTE | 2019-11-01 09:36 | DI.US.S_ITS ---
PROCEDURE: US PELVIC COMPLETE INDICATIONS: OVARIAN CYST TECHNIQUE: Real-time scanning was performed of the pelvic organs, with image documentation. Additional endovaginal scanning was necessary due to incomplete visualization of the adnexal and endometrial structures by transabdominal scanning. COMPARISON: [facility], , PELVIC COMPLETE, 09/15/2019, 9:02. FINDINGS: Transabdominal scanning: Limited scanning through the kidneys shows no hydronephrosis. No pathologic free abdominal or pelvic fluid. Endovaginal scanning: Uterus: Uterus is normal in size at 7.3 x 4 x 4.1 cm. The endometrium measures 6.5 mm in combined thickness. An IUD is seen at its expected location. Ovaries: The right ovary measures 2.6 x 1.8 x 2.1 cm. The left ovary measures 1.7 x 1.3 x 1.2 cm. The ovaries have a normal sonographic appearance, with normal appearing cystic follicles seen. The previously seen right-sided complex ovarian cyst has resolved. No adnexal masses are seen. IMPRESSION: Normal pelvic ultrasound, with resolution of the previously seen right-sided complex ovarian cyst. Dictated by: Tony Porter M.D. on 11/01/2019 at 11:01 Approved by: Tony Porter M.D. on 11/01/2019 at 11:02
== END ==
PROVIDERS: Family Provider Family Medicine; PCP Family Medicine; Referring Provider Family Medicine; Visit Provider Family Medicine
DX: N83.201 Unspecified ovarian cyst, right side (principal)
CPT/HCPCS: 76856

== ENCOUNTER → 2019-12-14 11:50 | Outpatient (CLI) | payer OTHER, MEDICAID, SELFPAY ==
--- NOTE | 2019-12-14 12:26 | DI.CT.S_ITS ---
PROCEDURE: CT ABDOMEN PELVIS WO/W CON INDICATIONS: hematuria TECHNIQUE: Optional 5 mm thick noncontrast images acquired from the diaphragm to the symphysis pubis. After the administration of intravenous contrast, 5 mm thick images acquired from the diaphragm to the symphysis pubis after a 10-minute delay. 2 mm thick coronal and sagittal reformats were then performed of the kidneys and ureters. For radiation dose reduction, the following was used: automated exposure control, adjustment of mA and/or kV according to patient size. COMPARISON: None. FINDINGS: Image quality: Excellent. Lung bases: Lung bases are clear. Heart size is normal. Urinary system: Both kidneys are normal in size, without hydronephrosis or nephrolithiasis on pre-contrast images. No perinephric fat stranding. There is normal bilateral renal enhancement. Renal calyces appear normal in morphology when filled with contrast. Opacified portions of both ureters demonstrate normal caliber. Bladder wall thickness is normal. No calcified bladder stones. Other solid organs: Liver is normal in size and enhancement. Gallbladder appears normal . Biliary system is non dilated. Pancreas enhances normally. Spleen is normal in size and enhancement. No adrenal nodules. Peritoneum and bowel: Bowel loops demonstrate normal wall thickness and caliber. No free fluid or air. Nodes and vessels: No retroperitoneal or mesenteric adenopathy by size criteria. Aorta and inferior vena cava are normal in size. Abdominal wall: No ventral hernias. Pelvis: No pathologic free pelvic fluid. No inguinal hernias or adenopathy. . Centrally positioned IUD within the endometrial space of the uterus. Bones: No suspicious bony lesions. No vertebral body compression fractures. IMPRESSION: A source of hematuria is not identified. No urinary tract stone is found. No renal cortical mass lesion or urothelial mass is identified. Centrally positioned IUD noted within the endometrial canal Dictated by: Shayan Ochoa M.D. on 12/14/2019 at 16:09 Approved by: Shayan Ochoa M.D. on 12/14/2019 at 16:11
== END ==
PROVIDERS: Family Provider Family Medicine; PCP Family Medicine; Referring Provider Specialist; Visit Provider Specialist
DX: R31.29 Other microscopic hematuria (principal); Z97.5 Presence of (intrauterine) contraceptive device
CPT/HCPCS: 74178; Q9967

== ENCOUNTER → 2020-03-15 08:54 | Outpatient (CLI) | payer OTHER, MEDICAID, SELFPAY ==
--- NOTE | 2020-03-15 08:55 | DI.MRI.S_ITS ---
PROCEDURE: MR LUMBAR SPINE WO CON INDICATIONS: low back pain with radiculopathy TECHNIQUE: Noncontrast sagittal T1 spin echo and T2 fast echo, sagittal STIR, axial T1 and T2 fast spin echo through the lumbar spine. In cases with scoliosis, additional coronal T2 fast spin echo may be performed. COMPARISON: [facility], MR, L-SPINE WITHOUT CONTRAST, 07/22/2016, 17:52. [facility], CT, CT ABDOMEN PELVIS WO/W CON, 12/14/2019, 12:06. FINDINGS: Image quality: This examination is limited by involuntary motion artifact. Images are repeated, with some improvement. Alignment and Curvature: There is normal bony alignment. Bone Marrow: Marrow is of normal overall signal. No acute vertebral body compression fractures. Spinal Cord: Conus medullaris terminates at the L1 level. Visualized cord demonstrates normal signal and size. Paraspinous Soft Tissues: No paravertebral masses. T12-L1: Normal appearance. L1-L2: Normal appearance. L2-L3: The disc height and disk signal are well-preserved. Mild generalized disc bulge is seen. Moderate bilateral neural foraminal narrowing is seen. Mild central canal narrowing is seen. These imaging findings have progressed compared to the prior study. L3-L4: The disc height and disk signal are well-preserved. Mild generalized disc bulge is seen. There is moderate left-sided and mild right-sided neural foraminal narrowing seen. Minimal central canal narrowing is seen. When comparison is made with the prior examination, these findings are similar. L4-L5: The disc height and disk signal are well-preserved. Moderate disc bulge is seen, with a mild central disc protrusion. Mild to moderate facet hypertrophy is seen. Moderate bilateral neural foraminal narrowing is seen. Mild central canal narrowing is seen. Mild progression compared to 2017. L5-S1: Moderate loss of disc height is seen. Loss of disc signal is seen. Moderate disc bulge is seen, with a central disc protrusion. Moderate facet joint hypertrophy is seen. There is a focal annular fissure seen posteriorly. There is at least moderate bilateral neural foraminal narrowing seen, right worse than left. There is a degree of compression seen upon the exiting nerve roots. Mild to moderate central canal narrowing is seen. These imaging findings have progressed compared to the prior study. IMPRESSION: Multiple levels of lumbar spine degenerative change are seen, which are most prominent at L5-S1. Overall, mild progression of degenerative change compared to 2017. Dictated by: Tony Porter M.D. on 03/15/2020 at 9:01 Approved by: Tony Porter M.D. on 03/15/2020 at 9:11
== END ==
PROVIDERS: Family Provider Family Medicine; PCP Family Medicine; Referring Provider Family Medicine; Visit Provider Family Medicine
DX: M47.26 Other spondylosis with radiculopathy, lumbar region (principal); M47.27 Other spondylosis with radiculopathy, lumbosacral region
CPT/HCPCS: 72148

== ENCOUNTER → 2020-04-22 13:52 | Outpatient (CLI) | payer OTHER, MEDICAID, SELFPAY ==
--- NOTE | 2020-04-22 13:55 | DI.RAD.S_ITS ---
PROCEDURE: XR LUMBAR SPINE MIN 4V INDICATIONS: update imaging TECHNIQUE: 5 views of the lumbar spine were acquired. COMPARISON: [facility], CT, CT ABDOMEN PELVIS WITH CONTRAST, 01/25/2017, 17:49. [facility], CR, XR LUMBAR SPINE MIN 4V, 03/14/2018, 13:38. FINDINGS: Bones: 5 nonrib-bearing vertebrae are present. There is normal bony alignment. No vertebral body compression fractures. No suspicious bony lesions. There is mild rightward curvature of the lumbar spine. The L5-S1 disc space is narrowed. The remaining disc spaces are normal. Soft tissues: Overlying bowel gas pattern is normal. No suspicious soft tissue calcifications. Sign IUD is noted within the pelvis. Oblique images: No pars defects. IMPRESSION: 1. Disc space narrowing at L5-S1 consistent with disc disease at this level. 2. Mild rightward curvature of the lumbar spine. Dictated by: Koko Carney M.D. on 04/22/2020 at 14:27 Approved by: Koko Carney M.D. on 04/22/2020 at 14:32
== END ==
PROVIDERS: Family Provider Family Medicine; PCP Family Medicine; Referring Provider Physical Medicine & Rehabilitation; Visit Provider Physical Medicine & Rehabilitation
DX: M47.817 Spondylosis without myelopathy or radiculopathy, lumbosacral region (principal); M46.96 Unspecified inflammatory spondylopathy, lumbar region; M48.07 Spinal stenosis, lumbosacral region
CPT/HCPCS: 72110

== ENCOUNTER → 2020-05-21 12:59 | Outpatient (CLI) | payer OTHER, MEDICAID, SELFPAY ==
[2020-05-21 15:53] LABS: COVID19 -Nasal RAPID Negative (Negative)
== END ==
PROVIDERS: Family Provider Family Medicine; PCP Family Medicine; Visit Provider Physical Medicine & Rehabilitation
DX: Z20.822 Contact with and (suspected) exposure to COVID-19 (principal)
CPT/HCPCS: 87635; C9803

== ENCOUNTER 2020-05-23 13:33 | Outpatient (CLI) | payer OTHER, MEDICAID, SELFPAY ==
[2020-05-23] VITALS (8 sets, daily range): BP systolic 100–117; BP diastolic 54–78; PULSE 63–78; RESP 10–16; TEMP 36.4; O2SAT 92–99
--- NOTE | 2020-05-23 13:34 | DI.RAD.S_ITS ---
PROCEDURE: PAIN L/S TRANSFORAMINAL INJECT INDICATIONS: SPONDYLOSIS COMPARISON: None. FINDINGS: Fluoroscopic spot filming was performed to verify placement of spinal needles at the left L5-S1 transforaminal neural foramen margin level(s), as labeled on the films. Appropriate location(s) of the needle tip(s) was confirmed by injection of iodinated contrast. IMPRESSION: Successful needle tip localization for left-sided L5-S1 transforaminal epidural steroid injection. Dictated by: Shayan Ochoa M.D. on 05/23/2020 at 17:00 Approved by: Shayan Ochoa M.D. on 05/23/2020 at 17:01
--- NOTE | 2020-05-23 14:03 | P.PCN_ITS ---
Date/Time/Diagnoses Date of procedure: 05/23/20 Time of procedure: 14:03 Pre-procedure diagnosis: 1. FORAMINAL STENOSIS WITH LE SYMPTOMS Post-procedure diagnosis: same Procedure Notes Procedure: 1. FLUOROSCOPICALLY GUIDED CONTRAST CONTROLLED TRANSFORAMINAL EPIDURAL STEROID INJECTION - LEFT L4/5 Indications: Mamta is referred by Dr. Soares for treatment of Foraminal Stenosis with Left LE Symptoms Physician: Palmer Guillory Total Fluoroscopy time (seconds): 8 Total sedation minutes: 9 Complications: none Procedure in detail & Post-procedure care: FINDINGS Foraminal Nerve Root Compression secondary to disc disease and facet hypertrophy DESCRIPTION OF PROCEDURE Following review of allergy and review of potential side effects and complications, including, but not necessarily limited to, infection, allergic reaction, local tissue breakdown, stroke, temporary or permanent nerve injury, paralysis, and possible , the patient indicated that the patient understood and agreed to proceed. An informed consent document was signed by the patient, witnessed by a nurse, and placed in the patient's chart. Additionally, other treatment options including medications, modalities, and physical therapy were reviewed with the patient. After review of previous anaesthesic history and IV conscious sedation the patient was deemed safe to proceed with today?s procedure with IV conscious sedation as ASA class II designation. Safety time-out was performed to confirm patient ID, procedure to be performed and site of procedure. IV sedation was accomplished with a combination of 2mg of Versed and 50mcg of Fentanyl administered by the RN after DO order, titrated to patient comfort during the course of the procedure while the patient remained responsive to all verbal commands In the prone position following sterile prep and drape of the lumbar region, the left L4/5 posterior neuroforamen was identified fluoroscopically. The skin was anesthetized via a 25-gauge 1.5-inch needle with 1% lidocaine solution. At this point, a 25-gauge 3.5-inch spinal needle was atraumatically introduced and advanced under fluoroscopic guidance through the posterior left L4/5 neuroforamen to approximately the anterior aspect of the canal. Depth was confirmed on lateral view. Following negative aspiration, injection of approximately 1.5 cc of Isovue 200 under live fluoroscopy in the AP view confirmed excellent flow along the nerve root, into the epidural space without vascular or intrathecal uptake observed Radiological data, including multiple fluoroscopic views of the lumbosacral spine, reveal a spinal needle at the left L4/5 posterior neuroforamen. Subsequent views show flow of contrast material flowing superiorly and inferiorly along the nerve root confirming epidural flow. Subsequently, a test dose of 1.5 cc of 1% lidocaine solution was administered and patient was observed for two minutes for signs or symptoms of complications, including abdominal pain, shortness of breath, bilateral upper or lower extremity weakness, nausea and vomiting, prior to steroid injection. At this point, a total of 3cc or 20mg of dexamethasone and 6mg of betamethasone was injected without incident. The procedure tolerated the procedure well without signs or symptoms of complications prior to transfer to the recovery area continued monitoring without incident. The patient was then transferred to the recovery area where they were observed for an appropriate time after the injection. The patient reported a VAS score of 7 prior to the procedure and a post- procedure VAS of 2. POST OP INSTRUCTIONS The patient was provided a Pain Log to continue to record their response to the target-specific procedure prior to follow-up visit with their referring physician. Additionally, specific post-injection care instructions and a contact number to our office were provided if concerns arise regarding possible complications associated with the procedure are suspected.
[2020-05-23] MEDS: MIDAZOLAM 5 MG/5 ML VIAL IV (14:11)
[2020-05-23] MEDS: fentaNYL 100 MCG/2 ML INJ 50 MCG IV (14:11)
[2020-05-23] MEDS: BUPIVACAINE 0.25% (PF) VIAL 2 ML INJ (14:17)
[2020-05-23] MEDS: IOPAMIDOL 15 ML VIAL 3 ML INJ (14:17)
[2020-05-23] MEDS: DEXAMETHASONE 10 MG/ML VIAL 20 MG INJ (14:18)
[2020-05-23] MEDS: BETAMETHASONE 30 MG/5 ML MDV 6 MG INJ (14:18)
--- NOTE | 2020-05-23 14:26 | P.PCN_ITS ---
Date/Time/Diagnoses Date of procedure: 05/23/20 Time of procedure: 14:26 Pre-procedure diagnosis: 1. FORAMINAL STENOSIS WITH LE SYMPTOMS Post-procedure diagnosis: same Procedure Notes Procedure: 1. FLUOROSCOPICALLY GUIDED CONTRAST CONTROLLED TRANSFORAMINAL EPIDURAL STEROID INJECTION - Left L5/S1 Indications: Mamta is referred by Dr. Soares for treatment of Foraminal Stenosis with Left LE Symptoms Physician: Palmer Guillory Total Fluoroscopy time (seconds): 8 Total sedation minutes: 12 Complications: none Procedure in detail & Post-procedure care: FINDINGS Foraminal Nerve Root Compression secondary to disc disease and facet hypertrophy DESCRIPTION OF PROCEDURE Following review of allergy and review of potential side effects and complications, including, but not necessarily limited to, infection, allergic reaction, local tissue breakdown, stroke, temporary or permanent nerve injury, paralysis, and possible , the patient indicated that the patient understood and agreed to proceed. An informed consent document was signed by the patient, witnessed by a nurse, and placed in the patient's chart. Additionally, other treatment options including medications, modalities, and physical therapy were reviewed with the patient. After review of previous anaesthesic history and IV conscious sedation the patient was deemed safe to proceed with today?s procedure with IV conscious sedation as ASA class II designation. Safety time-out was performed to confirm patient ID, procedure to be performed and site of procedure. IV sedation was accomplished with a combination of 4mg of Versed and 50mcg of Fentanyl was administered by the RN after DO order, titrated to patient comfort during the course of the procedure while the patient remained responsive to all verbal commands In the prone position following sterile prep and drape of the lumbar region, the Left L5/S1 posterior neuroforamen was identified fluoroscopically. The skin was anesthetized via a 25-gauge 1.5-inch needle with 1% lidocaine solution. At this point, a 25-gauge 3.5-inch spinal needle was atraumatically introduced and advanced under fluoroscopic guidance through the posterior Left L5/S1 neuro foramen to approximately the anterior aspect of the canal. Depth was confirmed on lateral view. Following negative aspiration, injection of approximately 1.5 cc of Isovue 200 under live fluoroscopy in the AP view confirmed excellent flow along the nerve root, into the epidural space without vascular or intrathecal uptake observed Radiological data, including multiple fluoroscopic views of the lumbosacral spine, reveal a spinal needle at the Left L5/S1 posterior neuroforamen. Subsequent views show flow of contrast material flowing superiorly and inferiorly along the nerve root confirming epidural flow. Subsequently, a test dose of 1.5 cc of 1% lidocaine solution was administered and patient was observed for two minutes for signs or symptoms of complications, including abdominal pain, shortness of breath, bilateral upper or lower extremity weakness, nausea and vomiting, prior to steroid injection. At this point, a total of 3cc or 20mg of dexamethasone and 6mg of betamethasone was injected without incident. The procedure tolerated the procedure well without signs or symptoms of complications prior to transfer to the recovery area continued monitoring without incident. The patient was then transferred to the recovery area where they were observed for an appropriate time after the injection. The patient reported a VAS score of 7 prior to the procedure and a post-procedure VAS of 0. POST OP INSTRUCTIONS The patient was provided a Pain Log to continue to record their response to the target-specific procedure prior to follow-up visit with their referring physician. Additionally, specific post-injection care instructions and a contact number to our office were provided if concerns arise regarding possible complications associated with the procedure are suspected.
== END 2020-05-23 14:50 | disposition home or self-care (01) ==
PROVIDERS: Family Provider Family Medicine; PCP Family Medicine; Referring Provider Physical Medicine & Rehabilitation; Visit Provider Physical Medicine & Rehabilitation
DX: M48.07 Spinal stenosis, lumbosacral region; M51.17 Intervertebral disc disorders with radiculopathy, lumbosacral region
CPT/HCPCS: 64483; 99152; J0702; J1100; J2250; J3010

== ENCOUNTER → 2020-07-11 12:22 | Outpatient (CLI) | payer OTHER, MEDICAID, SELFPAY ==
--- NOTE | 2020-07-11 12:33 | DI.RAD.S_ITS ---
PROCEDURE: XR CERVICAL SPINE 2V OR 3V INDICATIONS: NECK PAIN TECHNIQUE: 2 view(s) of the cervical spine were acquired. COMPARISON: None. FINDINGS: Bones: Straightening of cervical curvature. No fractures or dislocations to the [id number]. The lateral masses of C1 appear intact on the odontoid view. No suspicious bony lesions. Soft tissues: No prevertebral soft tissue swelling. IMPRESSION: Straightening of cervical curvature. Otherwise normal. Dictated by: Anitha Morley M.D. on 07/11/2020 at 15:42 Approved by: Anitha Morley M.D. on 07/11/2020 at 15:55
== END ==
PROVIDERS: Family Provider Family Medicine; PCP Family Medicine; Referring Provider Physician Assistant; Visit Provider Physician Assistant
DX: M54.2 Cervicalgia (principal)
CPT/HCPCS: 72040

== ENCOUNTER → 2020-07-17 11:42 | Outpatient (CLI) | payer OTHER, SELFPAY ==
--- NOTE | 2020-07-17 | DI.RAD.S_ITS ---
PROCEDURE: XR WRIST LT MIN 3V INDICATIONS: LEFT WRIST PAIN TECHNIQUE: 3 views of the wrist were acquired. COMPARISON: [facility], , XR WRIST LT 2V, 01/26/2019, 14:59. FINDINGS: Diagnostic sensitivity study diminished secondary to artifact related to presence of fiberglass splint. Bones: No displaced fractures or dislocations. No suspicious bony lesions. Soft tissues: No suspicious soft tissue calcifications. IMPRESSION: No displays fracture. No osseous lesion within limitations of the study. If symptoms and/or clinical suspicion for pathology persists, further assessment with repeat radiographs (7-10 days) or advanced imaging (e.g. CT, MRI or bone scan) should be considered. Dictated by: Shruthi Herring MD, PhD on 07/17/2020 at 17:14 Approved by: Shruthi Herring MD, PhD on 07/17/2020 at 17:15
--- NOTE | 2020-07-17 | DI.RAD.S_ITS ---
PROCEDURE: XR HAND LT MIN 3V INDICATIONS: LEFT HAND PAIN TECHNIQUE: 3 views of the hand(s) acquired. COMPARISON: [facility], CR, XR HAND LT 2V, 01/26/2019, 14:59. FINDINGS: Diagnostic sensitivity study limited by artifact related to fiberglass splint. Bones: No displaced fractures or dislocations. Carpal bones are normally aligned. No suspicious bony lesions. Soft tissues: No suspicious soft tissue calcifications. IMPRESSION: No displaced fracture. No osseous lesion within limitations of the study. If symptoms and/or clinical suspicion for pathology persists, further assessment with repeat radiographs (7-10 days) or advanced imaging (e.g. CT, MRI or bone scan) should be considered. Dictated by: Shruthi Herring MD, PhD on 07/17/2020 at 17:13 Approved by: Shruthi Herring MD, PhD on 07/17/2020 at 17:14
--- NOTE | 2020-07-17 | DI.RAD.S_ITS ---
PROCEDURE: XR FOREARM LT 2V INDICATIONS: LEFT ARM PAIN TECHNIQUE: 2 views of the forearm were acquired. COMPARISON: [facility], CR, XR WRIST LT MIN 3V, 07/17/2020, 12:17. FINDINGS: Diagnostic sensitivity study is limited secondary to presence of fiberglass splint which obscures the distal forearm, wrist and hand. Bones: No displaced fractures or dislocations. No suspicious bony lesions. Soft tissues: No suspicious soft tissue calcifications or masses. IMPRESSION: No displaced fracture identified within limitations related to artifact associated with fiberglass splint. Dictated by: Shruthi Herring MD, PhD on 07/17/2020 at 17:11 Approved by: Shruthi Herring MD, PhD on 07/17/2020 at 17:12
== END ==
PROVIDERS: Family Provider Family Medicine; PCP Family Medicine; Referring Provider Family Medicine; Visit Provider Family Medicine
DX: M79.642 Pain in left hand (principal)
CPT/HCPCS: 73090; 73110; 73130

== ENCOUNTER → 2020-08-08 06:36 | Outpatient (CLI) | payer OTHER, MEDICAID, SELFPAY ==
--- NOTE | 2020-08-08 | DI.MRI.S_ITS ---
PROCEDURE: MR LUMBAR SPINE WO CON INDICATIONS: Radicular pain TECHNIQUE: Noncontrast sagittal T1 spin echo and T2 fast echo, sagittal STIR, axial T1 and T2 fast spin echo through the lumbar spine. In cases with scoliosis, additional coronal T2 fast spin echo may be performed. COMPARISON: [facility], MR, MR LUMBAR SPINE WO CON, 03/15/2020, 9:18. FINDINGS: Image quality: Excellent. Alignment and Curvature: There is normal bony alignment. Bone Marrow: Reactive endplate changes noted adjacent to the L5-S1 disc. No acute vertebral body compression fractures. Spinal Cord: Conus medullaris terminates at the L1 level. Visualized cord demonstrates normal signal and size. Paraspinous Soft Tissues: No paravertebral masses. T12-L1: Normal appearance. L1-L2: Normal appearance. L2-L3: Loss of disc signal. Mild, diffuse disc bulge. No central stenosis. No neural foraminal narrowing. No neural compression. L3-L4: Normal appearance. L4-L5: Normal appearance. L5-S1: Loss of disc signal and height. Mild, diffuse disc bulge. Mild bilateral facet hypertrophy. No central stenosis. Moderate right and moderate to severe left neural foraminal narrowing with slight compression of the exiting left L5 nerve root. Fissure noted in the posterior annulus. IMPRESSION: 1. Mild L2-L3 and L5-S1 degenerative disc disease. 2. Mild L5-S1 facet arthropathy. 3. No central stenosis. 4. Moderate right and moderate to severe left L5-S1 neural foraminal narrowing with slight compression of the exiting left L5 nerve root. 5. L5-S1 disc annulus fissure. Dictated by: Shruthi Herring MD, PhD on 08/08/2020 at 11:31 Approved by: Shruthi Herring MD, PhD on 08/08/2020 at 11:36
--- NOTE | 2020-08-08 | DI.MRI.S_ITS ---
PROCEDURE: MR CERVICAL SPINE WO CON INDICATIONS: Radicular pain TECHNIQUE: Noncontrast sagittal T1 spin echo and T2 fast spin echo, sagittal STIR, foraminal oblique sagittal T2 fast spin echo, and axial gradient echo or T2 fast spin echo through the cervical spine. COMPARISON: None. FINDINGS: Image quality: Excellent. Alignment and Curvature: There is normal bony alignment. Bone Marrow: Marrow demonstrates normal overall signal. Spinal Cord: Visualized spinal cord has normal size and signal. No cerebellar tonsillar herniation. Paraspinous Soft Tissues: No paravertebral masses. Prevertebral soft tissues are normal in thickness. C2-C3: Normal appearance. C3-C4: Normal appearance. C4-C5: Normal appearance. C5-C6: Slight loss of disc signal. Mild, diffuse disc bulge. Mild narrowing of the central canal. No neural foraminal narrowing. No neural compression. C6-C7: Slight loss of disc signal. Minimal, diffuse disc bulge. No central stenosis. No neural foraminal narrowing. No neural compression. C7-T1: Normal appearance. IMPRESSION: 1. Mild C5-C6 and C6-C7 degenerative disc disease. 2. No severe central canal narrowing. 3. No severe neural foraminal narrowing. 4. No neural compression. Dictated by: Shruthi Herring MD, PhD on 08/08/2020 at 11:41 Approved by: Shruthi Herring MD, PhD on 08/08/2020 at 12:04
== END ==
PROVIDERS: Family Provider Family Medicine; PCP Physician Assistant; Referring Provider Physician Assistant; Visit Provider Physician Assistant
DX: M50.122 Cervical disc disorder at C5-C6 level with radiculopathy (principal); M51.16 Intervertebral disc disorders with radiculopathy, lumbar region; M51.17 Intervertebral disc disorders with radiculopathy, lumbosacral region; M47.27 Other spondylosis with radiculopathy, lumbosacral region; M48.07 Spinal stenosis, lumbosacral region
CPT/HCPCS: 72141; 72148

== ENCOUNTER → 2020-08-12 13:36 | Outpatient (CLI) | payer OTHER, MEDICAID, SELFPAY ==
[2020-08-12 16:19] LABS: Folate 4.6 ng/mL (2.76-20.0); Vitamin B12 270 pg/mL (239-931)
== END ==
PROVIDERS: Family Provider Family Medicine; PCP Physician Assistant; Referring Provider Physician Assistant; Visit Provider Physician Assistant
DX: R20.2 Paresthesia of skin (principal)
CPT/HCPCS: 36415; 82607; 82746

== ENCOUNTER 2020-10-16 22:27 | Emergency (ER) | payer OTHER, MEDICAID, SELFPAY ==
[2020-10-16 23:01] VITALS: BP 141/101; PULSE 77; RESP 16; TEMP 36.7; O2SAT 98; BMI 34.0
--- NOTE | 2020-10-16 23:09 | DI.RAD.S_ITS ---
PROCEDURE: XR CHEST 1V INDICATIONS: chest pain TECHNIQUE: One view of the chest was acquired. COMPARISON: [facility], CR, XR CHEST 1 VIEW, 01/25/2017, 15:27. FINDINGS: Surgical changes and devices: None. Lungs and pleura: Lungs are clear. No pleural effusions or pneumothorax. Mediastinum: Mediastinal contours appear normal. Heart size is normal. Bones and chest wall: No suspicious bony lesions. Overlying soft tissues appear unremarkable. IMPRESSION: No acute cardiopulmonary disease process. Dictated by: Shruthi Herring MD, PhD on 10/17/2020 at 8:35 Approved by: Shruthi Herring MD, PhD on 10/17/2020 at 8:36
[2020-10-16 23:29] LABS: Add Manual Diff / Slide Review NO; Basophils Absolute Auto 0 /uL (0-100); Basophils Percent Auto 0.6 % (0-2); Eosinophils Absolute Auto 500 /uL (0-450); Eosinophils Percent Auto 7.1 % (2-4); Hematocrit 43.6 % (36-46); Hemoglobin 14.8 g/dL (12.0-16.0); Lymphocytes Absolute Auto 2100 /uL (1100-4500); Lymphocytes Percent Auto 28.6 % (25-40); Mean Corpuscular HGB Conc 33.9 % (30-36); Mean Corpuscular Hemoglobin 30.2 PG (26-34); Mean Corpuscular Volume 89.1 fL (80-100); Monocytes Absolute Auto 400 /uL (0-900); Monocytes Percent Auto 5.7 % (3-14); Neutrophils Absolute Auto 4200 /uL (1500-7000); Platelet Count 227 X10^3/uL (150-400); Red Cell Distribution Width 13.1 % (11.6-14.8); White Blood Cell Count 7.2 X10^3/uL (4.5-11.0)
--- NOTE | 2020-10-16 23:36 | DI.CT.S_ITS ---
PROCEDURE: CT ANGIO HEAD AND NECK INDICATIONS: severe headache with neck and right arm tingling TECHNIQUE: Pre-contrast 4.5 mm thick sections acquired from the foramen magnum to the vertex. After the administration of intravenous contrast, 1 mm thick sections acquired from the aortic arch through the C[place] of Gil. Post-contrast 4.5 mm thick sections then re-acquired from the foramen magnum to the vertex. 3-dimensional rqwebkr-mfzjoizit-pmygmksjob (MIP) and/or volume rendering reformats were acquired of the central intracranial vasculature and neck separately. COMPARISON: None. FINDINGS: Image quality: Excellent. BRAIN: CSF spaces: Ventricles are normal in size and shape. Basal cisterns are patent. No extra-axial fluid collections. Brain: No midline shift. No intracranial bleeds or masses. Narvaez-white matter interface appears intact. Skull and face: Calvarium and facial bones appear intact, without suspicious lesions. Orbits appear normal. Sinuses: Sinuses and mastoids are clear. HEAD CT ANGIOGRAPHY: Anterior circulation: Intracranial internal carotid arteries are normal in size and flow. The flow within the paired anterior cerebral arteries is normal and symmetric. The flow within the middle cerebral arteries is normal and symmetric. The anterior communicating artery is seen. No aneurysms are seen. Posterior circulation: Visualized portions of the vertebral arteries demonstrate normal caliber, and join to form a normal appearing basilar artery. Flow within the posterior cerebral arteries is normal and symmetric. No aneurysms are seen. Dural sinuses demonstrate normal postcontrast enhancement. NECK CT ANGIOGRAPHY: Carotid system: The great vessels demonstrate a conventional anatomy as they arise from the aortic arch. The origins of the common carotid arteries appear patent. The common carotid arteries demonstrate normal caliber and courses. The bifurcation regions are both widely patent. The internal carotid arteries demonstrate normal calibers and courses. Posterior circulation: The origins of the vertebral arteries both appear widely patent. The more superior extracranial portions of both vertebral arteries also demonstrate normal courses and calibers. They join to form a normal appearing basilar artery. Soft tissues: Visualized neck soft tissues demonstrate no suspicious abnormalities. Bones: No suspicious bony lesions. Visualized cervical spine appears normally aligned. IMPRESSION: 1. No acute intracranial disease process. 2. No large vessel occlusion, vascular stenosis, vascular dissection or aneurysm. Any quantitative measurements of stenosis were performed using NASCET criteria. Dictated by: Shruthi Herring MD, PhD on 10/17/2020 at 7:40 Approved by: Shruthi Herring MD, PhD on 10/17/2020 at 7:47
[2020-10-16 23:44] LABS: Alanine Aminotransferase 14 IU/L (<35); Albumin 4.2 g/dL (3.5-5.0); Albumin Globulin Ratio 1.5 (1.0-2.8); Alkaline Phosphatase 65 U/L (38-126); Aspartate Aminotransferase 20 IU/L (14-36); BUN Creatinine Ratio 17.2 (6-22); Bilirubin Total 0.5 mg/dL (0.2-1.3); Blood Urea Nitrogen 11 mg/dL (7-17); Carbon Dioxide 27 mmol/L (22-32); Chloride 105 mmol/L (98-107); Creatine Kinase 72 U/L (30-135); Estimated Glomerular Filt Rate > 60.0 mL/min (>60); Globulin 2.8 g/dL (1.7-4.1); Glucose 95 mg/dL (70-100); HEMOLYSIS < 15 (0-50); Lipase 58 U/L (23-300); Potassium 3.9 mmol/L (3.4-5.1); Sodium 138 mmol/L (137-145)
[2020-10-16] MEDS: KETOROLAC 30 MG/ML VIAL 15 MG IV (23:52)
[2020-10-16] MEDS: SODIUM CHLORIDE 0.9% 1,000 ML 1000 ML IV (23:52)
[2020-10-16] MEDS: METOCLOPRAMIDE 10 MG/2 ML INJ IV (23:54)
[2020-10-16 23:55] LABS: Troponin I < 0.012 ng/mL (0.01-0.034)
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
[2020-10-17] MEDS: CYCLOBENZAPRINE 10 MG PREPACK 1 BOTTLE MISC (02:17)
[2020-10-17 02:21] VITALS: BP 119/74; PULSE 59; RESP 14; O2SAT 97
== END 2020-10-17 02:23 | disposition home or self-care (01) ==
PROVIDERS: Emergency Provider Emergency Medicine; Family Provider Family Medicine; PCP Physician Assistant
DX: M54.6 Pain in thoracic spine (principal); R51.9 Headache, unspecified
CPT/HCPCS: 36415; 70496; 70498; 71045; 80053; 82550; 83690; 84484; 85025; 96361; 96374; 96375; 99284; J1885; J2765; Q9967

== ENCOUNTER 2020-10-30 06:09 | Emergency (ER) | payer OTHER, MEDICAID, SELFPAY ==
[2020-10-30 06:20] VITALS: BP 119/84; PULSE 64; RESP 17; TEMP 36.5; O2SAT 98; BMI 35.9
[2020-10-30] MEDS: MORPHINE 4 MG/ML INJ IV (06:39)
[2020-10-30] MEDS: SODIUM CHLORIDE 0.9% 1,000 ML 1000 ML IV (06:40)
[2020-10-30] MEDS: ONDANSETRON 4 MG/2 ML INJ IV (06:40)
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
[2020-10-30 07:00] LABS: Appearance Urine UA CLEAR; Bilirubin Urine UA NEGATIVE (NEGATIVE); Color Urine UA YELLOW; Glucose Urine UA NEGATIVE (Negative); Ketones Urine UA NEGATIVE (NEGATIVE); Leukocyte Esterase Urine UA 1+ (NEGATIVE); Nitrite Urine UA NEGATIVE (Negative); Occult Blood Urine UA 3+ (Negative); Protein Urine UA 1+ (Negative); Urobilinogen Urine UA 0.2 E.U./dL (0.2)
[2020-10-30 07:03] LABS: Pregnancy Test Urine Negative (Negative)
[2020-10-30 07:06] LABS: pH Urine UA 7.5 (4.5-8.0)
[2020-10-30 07:11] LABS: RBC Urine 5-10/HPF (0-5/HPF)
[2020-10-30 07:14] LABS: Bacteria Urine Few (2-10); Culture Indicated Urine Specimen Cultured; Squamous Epithelial Cell Urine 0-1 /HPF (0-5/HPF); WBC Urine 5-10/HPF (0-5/HPF)
[2020-10-30 07:16] LABS: Add Manual Diff / Slide Review NO; Basophils Absolute Auto 0 /uL (0-100); Basophils Percent Auto 0.4 % (0-2); Eosinophils Absolute Auto 700 /uL (0-450); Eosinophils Percent Auto 6.5 % (2-4); Hematocrit 48.3 % (36-46); Hemoglobin 16.5 g/dL (12.0-16.0); Lymphocytes Absolute Auto 1900 /uL (1100-4500); Lymphocytes Percent Auto 18.6 % (25-40); Mean Corpuscular HGB Conc 34.2 % (30-36); Mean Corpuscular Volume 87.8 fL (80-100); Monocytes Absolute Auto 500 /uL (0-900); Monocytes Percent Auto 5.3 % (3-14); Neutrophils Absolute Auto 7000 /uL (1500-7000); Neutrophils Percent Auto 69.2 % (50-75); Platelet Count 272 X10^3/uL (150-400); Red Blood Cell Count 5.49 X10^6/uL (4.0-5.2); Red Cell Distribution Width 13.1 % (11.6-14.8); White Blood Cell Count 10.2 X10^3/uL (4.5-11.0)
--- NOTE | 2020-10-30 07:27 | DI.CT.S_ITS ---
PROCEDURE: CT KIDNEY URETER BLADDER (KUB) INDICATIONS: Left flank pain TECHNIQUE: Axial sections were acquired from the lung bases to the pubic symphysis. Coronal and sagittal reformats were performed. For radiation dose reduction, the following was used: automated exposure control, adjustment of mA and/or kV according to patient size. COMPARISON:[facility], CT, CT KIDNEY URETER BLADDER (KUB), 10/16/2019, 9:57. FINDINGS: Image quality: Excellent. Lung bases: Unremarkable. Heart: No significant findings. URINARY: Right Kidney: No stones or hydronephrosis. Right Ureter: No hydroureter. Left Kidney: No stones or hydronephrosis. Left Ureter: No hydroureter. Bladder: Normal wall thickness. No stones. ABDOMEN: Liver: Unremarkable. Gallbladder: Unremarkable. Biliary ducts: Unremarkable. Pancreas: Unremarkable. Spleen: Unremarkable. Adrenal Glands: Unremarkable. Stomach and Bowel: Probable gastric diverticulum incidentally noted. Scattered sigmoid and left colonic diverticuli with no evidence of acute diverticulitis. Otherwise unremarkable. Peritoneum: No abnormal intraperitoneal fluid. No free air. Ventral Wall: No hernia. Abdominal Nodes: No enlarged retroperitoneal or mesenteric lymph nodes. Vessels: Aorta and inferior vena cava are normal in size. PELVIS: Pelvic Organs: IUD. Cystic right adnexa. Pelvic Nodes: Unremarkable. Miscellaneous: No inguinal hernias are seen. Bones: Unremarkable. IMPRESSION: 1. No evidence of renal stones, ureteral stones, or hydronephrosis. 2. No evidence of acute abdominal process. 3. Mild diverticulosis without evidence of diverticulitis. Comment: Final report is concordant with preliminary interpretation provided by [facility]. Dictated by: Murtaza Bianchi M.D. on 10/30/2020 at 8:07 Approved by: Murtaza Bianchi M.D. on 10/30/2020 at 8:11
[2020-10-30 07:43] VITALS: O2SAT 97
[2020-10-30 07:44] VITALS: BP 112/82; PULSE 68; O2SAT 100
[2020-10-30 07:55] LABS: Alanine Aminotransferase 17 IU/L (<35); Albumin Globulin Ratio 1.3 (1.0-2.8); Alkaline Phosphatase 59 U/L (38-126); Aspartate Aminotransferase 23 IU/L (14-36); BUN Creatinine Ratio 21.4 (6-22); Bilirubin Total 0.5 mg/dL (0.2-1.3); Blood Urea Nitrogen 12 mg/dL (7-17); Calcium 9.1 mg/dL (8.4-10.2); Carbon Dioxide 24 mmol/L (22-32); Chloride 109 mmol/L (98-107); Estimated Glomerular Filt Rate > 60.0 mL/min (>60); Globulin 3.1 g/dL (1.7-4.1); Glucose 95 mg/dL (70-100); HEMOLYSIS < 15 (0-50); Potassium 4.4 mmol/L (3.4-5.1); Sodium 138 mmol/L (137-145); Total Protein 7.1 g/dL (6.3-8.2)
[2020-10-30 08:00] VITALS: PULSE 67; O2SAT 97
[2020-10-30] MEDS: KETOROLAC 30 MG/ML VIAL IV (08:31)
== END 2020-10-30 08:36 | disposition home or self-care (01) ==
PROVIDERS: Emergency Medicine; Emergency Provider Emergency Medicine; Family Provider Family Medicine; PCP Physician Assistant
DX: N10 Acute pyelonephritis (principal); R31.9 Hematuria, unspecified
CPT/HCPCS: 36415; 74176; 80053; 81001; 81003; 81025; 85025; 87077; 87086; 87186; 96361; 96374; 96375; 99284; J1885; J2270; J2405

== ENCOUNTER 2020-11-24 20:01 | Emergency (ER) | payer OTHER, MEDICAID, SELFPAY ==
[2020-11-24 20:14] VITALS: BP 131/86; PULSE 85; RESP 16; TEMP 36.6; O2SAT 98; BMI 28.3
[2020-11-24 20:33] LABS: RBC Urine 1-5/HPF (0-5/HPF)
[2020-11-24 20:34] LABS: Amorphous Sediment Urine 2+; Bacteria Urine Moderate (10-30); Culture Indicated Urine Cult Not Indicated; Mucus Urine 2+ (Negative); Squamous Epithelial Cell Urine 10-30 /HPF (0-5/HPF); WBC Urine 0-1/HPF (0-5/HPF)
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
[2020-11-24] MEDS: TRIMETH/SULFA 160/800 (DS) TABLET 1 TAB PO (21:09)
[2020-11-24] MEDS: PHENAZOPYRIDINE 100 MG TABLET 200 MG PO (21:09)
== END 2020-11-24 21:18 | disposition home or self-care (01) ==
PROVIDERS: Emergency Provider Emergency Medicine; Family Provider Family Medicine; PCP Physician Assistant
DX: N39.0 Urinary tract infection, site not specified (principal)
CPT/HCPCS: 81003; 81015; 81025; 87086; 99283

== ENCOUNTER 2020-12-22 07:59 | Emergency (ER) | payer OTHER, MEDICAID, SELFPAY ==
[2020-12-22 08:00] VITALS: BP 135/63; PULSE 81; RESP 18; TEMP 36.2; O2SAT 100
[2020-12-22 08:13] VITALS: BP 119/66; PULSE 79; RESP 18; O2SAT 100
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
[2020-12-22 08:21] LABS: Add Manual Diff / Slide Review NO; Basophils Absolute Auto 100 /uL (0-100); Basophils Percent Auto 0.9 % (0-2); Eosinophils Absolute Auto 900 /uL (0-450); Eosinophils Percent Auto 9.8 % (2-4); Hematocrit 46.8 % (36-46); Hemoglobin 16.1 g/dL (12.0-16.0); Lymphocytes Absolute Auto 2500 /uL (1100-4500); Mean Corpuscular HGB Conc 34.5 % (30-36); Mean Corpuscular Hemoglobin 30.5 PG (26-34); Mean Corpuscular Volume 88.3 fL (80-100); Monocytes Absolute Auto 500 /uL (0-900); Monocytes Percent Auto 5.5 % (3-14); Neutrophils Absolute Auto 5300 /uL (1500-7000); Neutrophils Percent Auto 56.8 % (50-75); Platelet Count 257 X10^3/uL (150-400); Red Cell Distribution Width 13.5 % (11.6-14.8); White Blood Cell Count 9.3 X10^3/uL (4.5-11.0)
[2020-12-22] MEDS: ONDANSETRON 4 MG/2 ML INJ IV (08:25)
[2020-12-22 08:27] LABS: Alanine Aminotransferase 15 IU/L (<35); Albumin 4.3 g/dL (3.5-5.0); Albumin Globulin Ratio 1.3 (1.0-2.8); Alkaline Phosphatase 55 U/L (38-126); Aspartate Aminotransferase 24 IU/L (14-36); BUN Creatinine Ratio 24.5 (6-22); Bilirubin Total 0.6 mg/dL (0.2-1.3); Blood Urea Nitrogen 13 mg/dL (7-17); Carbon Dioxide 26 mmol/L (22-32); Chloride 107 mmol/L (98-107); Estimated Glomerular Filt Rate > 60.0 mL/min (>60); Globulin 3.2 g/dL (1.7-4.1); Glucose 96 mg/dL (70-100); Lipase 72 U/L (23-300); Sodium 138 mmol/L (137-145); Total Protein 7.5 g/dL (6.3-8.2)
[2020-12-22 08:30] VITALS: BP 119/72
[2020-12-22 08:50] LABS: HEMOLYSIS 73 (0-50)
[2020-12-22 09:11] LABS: Bacteria Urine Occasional (0-1); RBC Urine 1-5/HPF (0-5/HPF); Squamous Epithelial Cell Urine 5-10 /HPF (0-5/HPF); Trichomonas Urine 1-5/HPF (None Seen); WBC Urine 5-10/HPF (0-5/HPF)
[2020-12-22 09:40] VITALS: BP 109/67; PULSE 60; TEMP 36.4; O2SAT 99
== END 2020-12-22 09:47 | disposition home or self-care (01) ==
PROVIDERS: Emergency Provider Emergency Medicine; Family Provider Family Medicine; PCP Physician Assistant
DX: N39.0 Urinary tract infection, site not specified (principal); R31.9 Hematuria, unspecified
CPT/HCPCS: 36415; 80053; 81003; 81015; 81025; 83690; 85025; 87086; 96374; 99284; J2405

== ENCOUNTER 2021-01-02 15:30 | Emergency (ER) | payer OTHER, MEDICAID, SELFPAY ==
[2021-01-02 15:37] VITALS: BP 142/85; PULSE 77; RESP 16; TEMP 36.9; O2SAT 96; BMI 27.6
[2021-01-02 16:04] LABS: Add Manual Diff / Slide Review NO; Basophils Absolute Auto 0 /uL (0-100); Basophils Percent Auto 0.5 % (0-2); Eosinophils Absolute Auto 300 /uL (0-450); Eosinophils Percent Auto 3.3 % (2-4); Hematocrit 45.3 % (36-46); Hemoglobin 15.5 g/dL (12.0-16.0); Lymphocytes Absolute Auto 2000 /uL (1100-4500); Lymphocytes Percent Auto 21.7 % (25-40); Mean Corpuscular HGB Conc 34.2 % (30-36); Mean Corpuscular Hemoglobin 30.2 PG (26-34); Mean Corpuscular Volume 88.5 fL (80-100); Monocytes Absolute Auto 600 /uL (0-900); Neutrophils Absolute Auto 6400 /uL (1500-7000); Neutrophils Percent Auto 68.5 % (50-75); Platelet Count 277 X10^3/uL (150-400); Red Blood Cell Count 5.12 X10^6/uL (4.0-5.2); Red Cell Distribution Width 13.5 % (11.6-14.8); White Blood Cell Count 9.4 X10^3/uL (4.5-11.0)
[2021-01-02 16:19] LABS: COVID19 -Nasal RAPID Negative (Negative)
[2021-01-02 16:21] LABS: Lactate (Lactic Acid) 0.7 mmol/L (0.7-2.1)
[2021-01-02 16:23] LABS: Alanine Aminotransferase 17 IU/L (<35); Albumin 4.6 g/dL (3.5-5.0); Albumin Globulin Ratio 1.4 (1.0-2.8); Alkaline Phosphatase 70 U/L (38-126); Aspartate Aminotransferase 26 IU/L (14-36); Bilirubin Total 0.7 mg/dL (0.2-1.3); Blood Urea Nitrogen 12 mg/dL (7-17); Calcium 9.5 mg/dL (8.4-10.2); Carbon Dioxide 19 mmol/L (22-32); Chloride 108 mmol/L (98-107); Estimated Glomerular Filt Rate > 60.0 mL/min (>60); Globulin 3.3 g/dL (1.7-4.1); Glucose 87 mg/dL (70-100); HEMOLYSIS 27 (0-50); Lipase 73 U/L (23-300); Potassium 3.8 mmol/L (3.4-5.1); Sodium 139 mmol/L (137-145); Total Protein 7.9 g/dL (6.3-8.2)
--- NOTE | 2021-01-02 16:51 | PC.NURSE ---
Patient c/o chronic genitourinary pain and dysuria. States she waited at the walk in clinic and waited at the ER and feels due to her inconvenience it is unnecessary and unfair that [facility] limits the number of family visitors allowed in her treatment room. Patient was verbally hostile and verbally inappropriate to this RN and other staff.
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
[2021-01-02 16:57] VITALS: BP 122/80; PULSE 86; RESP 20; O2SAT 97
[2021-01-02] MEDS: cefTRIAXone 1,000 MG VIAL 250 MG IM (17:26)
[2021-01-02] MEDS: metroNIDAZOLE 500 MG TABLET PO (17:27)
== END 2021-01-02 17:50 | disposition home or self-care (01) ==
PROVIDERS: Emergency Provider Physician Assistant; Family Provider Family Medicine; PCP Physician Assistant
DX: N76.0 Acute vaginitis (principal); Z20.822 Contact with and (suspected) exposure to COVID-19
CPT/HCPCS: 36415; 80053; 83605; 83690; 85025; 87040; 87077; 87086; 87147; 87210; 87635; 96372; 99283; 99284; C9803; J0696

== ENCOUNTER → 2021-06-25 15:41 | Outpatient (CLI) | payer OTHER, MEDICAID, SELFPAY ==
--- NOTE | 2021-06-25 15:46 | DI.RAD.S_ITS ---
PROCEDURE: XR CHEST 2V INDICATIONS: COUGH TECHNIQUE: 2 views of the chest were acquired. COMPARISON: [facility], CR, XR CHEST 1 VIEW, 06/15/2021, 21:07. FINDINGS: Surgical changes and devices: None. Lungs and pleura: Lungs are clear. No pleural effusions or pneumothorax. Mediastinum: Mediastinal contours are normal. Heart size is normal. Bones and chest wall: No suspicious bony abnormalities. Soft tissues appear unremarkable. IMPRESSION: No acute cardiopulmonary disease. Dictated by: Anitha Morley M.D. on 06/25/2021 at 17:24 Approved by: Anitha Morley M.D. on 06/25/2021 at 17:24
== END ==
PROVIDERS: Family Provider Family Medicine; PCP Physician Assistant; Referring Provider Physician Assistant; Visit Provider Physician Assistant
DX: R05.9 Cough, unspecified (principal)
CPT/HCPCS: 71046

== ENCOUNTER → 2022-12-14 09:04 | Outpatient (CLI) | payer OTHER, SELFPAY | PROVIDERS: Family Provider Family Medicine; PCP Physician Assistant; Visit Provider Registered Nurse | DX: R30.0 Dysuria (principal) | CPT/HCPCS: 87086 ==

== ENCOUNTER → 2023-03-18 10:23 | Outpatient (CLI) | payer OTHER, SELFPAY ==
--- NOTE | 2023-03-18 10:26 | DI.RAD.S_ITS ---
PROCEDURE: XR CERVICAL SPINE 4V OR 5V INDICATIONS: NECK PAIN TECHNIQUE: 5 views of the cervical spine acquired. COMPARISON: [facility], CR, XR CERVICAL SPINE 2V OR 3V, 07/11/2020, 12:38. FINDINGS: Bones: No fractures or dislocations to the T1 level. Oblique images are limited by positioning There is straightening of the normal cervical lordosis. Mild lower cervical spine disc space narrowing Soft tissues: No prevertebral soft tissue swelling. IMPRESSION: Straightening of the normal cervical lordosis may be related to muscle spasm or positioning. Approved by: Basilio Rosario M.D. on 03/18/2023 at 18:28
== END ==
LOC: RAD 10:24
PROVIDERS: Family Provider Family Medicine; PCP Physician Assistant; Referring Provider Family Medicine; Visit Provider Family Medicine
DX: M54.2 Cervicalgia (principal)
CPT/HCPCS: 72050

== ENCOUNTER 2023-08-03 07:37 | Emergency (ER) | payer OTHER, SELFPAY ==
[2023-08-03 07:43] VITALS: BP 151/84; PULSE 80; RESP 18; TEMP 36.6; O2SAT 99; BMI 34.0
[2023-08-03 07:48] VITALS: PULSE 88; O2SAT 98
[2023-08-03 07:49] VITALS: BP 134/78; PULSE 88; O2SAT 97
[2023-08-03 07:56] LABS: Bilirubin Urine UA NEGATIVE (NEGATIVE); Color Urine UA YELLOW; Glucose Urine UA NEGATIVE (Negative); Ketones Urine UA NEGATIVE (NEGATIVE); Leukocyte Esterase Urine UA 3+ (NEGATIVE); Nitrite Urine UA NEGATIVE (Negative); Occult Blood Urine UA 2+ (Negative); Protein Urine UA TRACE (Negative); Specific Gravity Urine UA 1.015 (1.000-1.035); Urobilinogen Urine UA 0.2 E.U./dL (0.2)
[2023-08-03 07:59] LABS: Appearance Urine UA CLOUDY
[2023-08-03 08:00] VITALS: BP 115/71; PULSE 78; O2SAT 96
[2023-08-03 08:02] LABS: RBC Urine 1-5/HPF (0-5/HPF); Urine Volume 10mL (spun)
[2023-08-03 08:03] LABS: Bacteria Urine Many (>30); Culture Indicated Urine Specimen Cultured; Squamous Epithelial Cell Urine 5-10 /HPF (0-5/HPF); WBC Urine 30-100/HPF (0-5/HPF)
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
[2023-08-03] MEDS: DOXYCYCLINE HYCLATE 100 MG TABLET PO (09:25)
[2023-08-03 09:40] VITALS: BP 116/71; PULSE 66; O2SAT 99
[2023-08-03] MEDS: cefTRIAXone 2,000 MG VIAL 1000 MG IM (09:46)
[2023-08-03 09:50] LABS: Urine N gonorrhoeae NOT DETECTED
[2023-08-03 09:51] LABS: Urine Chlamydia NOT DETECTED
== END 2023-08-03 09:51 | disposition home or self-care (01) ==
PROVIDERS: Emergency Provider Emergency Medicine; Family Provider Family Medicine; PCP Physician Assistant
DX: N72 Inflammatory disease of cervix uteri (principal)
CPT/HCPCS: 81001; 87070; 87077; 87086; 87147; 87205; 87210; 87491; 87591; 96372; 99283; 99284; J0696

== ENCOUNTER → 2023-08-04 15:56 | Outpatient (CLI) | payer OTHER, SELFPAY ==
--- NOTE | 2023-08-04 | DI.RAD.S_ITS ---
PROCEDURE: XR HIP W PEL IF DONE JUAN A MIN 4V INDICATIONS: LOW BACK PAIN TECHNIQUE: AP pelvis with lateral view(s) of the bilateral hip(s). COMPARISON: None. FINDINGS: Bones: No fractures or dislocations. Pelvic ring appears intact. No suspicious bony lesions. Soft tissues: The visualized bowel gas pattern is normal. No suspicious soft tissue calcifications. IUD projects over the pelvic inlet. IMPRESSION: No acute bony abnormality. No significant degenerative change. Dictated by: Zander Hines M.D. on 08/04/2023 at 16:48 Approved by: Zander Hines M.D. on 08/04/2023 at 16:48
== END ==
PROVIDERS: Family Provider Family Medicine; PCP Physician Assistant; Referring Provider Family Medicine; Visit Provider Family Medicine
DX: M54.42 Lumbago with sciatica, left side (principal)
CPT/HCPCS: 73522

== ENCOUNTER → 2023-10-06 16:27 | Outpatient (CLI) | payer OTHER, SELFPAY | PROVIDERS: Family Provider Family Medicine; PCP Physician Assistant; Visit Provider Nurse Practitioner Family | DX: R30.0 Dysuria (principal) | CPT/HCPCS: 87077; 87086; 87147; 87210 ==

== ENCOUNTER → 2024-02-15 18:55 | Outpatient (CLI) | payer OTHER, SELFPAY ==
--- NOTE | 2024-02-15 | DI.MRI.S_ITS ---
PROCEDURE: MR CERVICAL SPINE WO CON INDICATIONS: degenerative disc disease TECHNIQUE: Noncontrast sagittal T1 spin echo and T2 fast spin echo, sagittal STIR, foraminal oblique sagittal T2 fast spin echo, and axial gradient echo or T2 fast spin echo through the cervical spine. COMPARISON: [facility], MR, MR CERVICAL SPINE WO CON, 08/08/2020, 6:58. FINDINGS: Image quality: Excellent. Alignment and Curvature: There is normal bony alignment. Bone Marrow: Marrow demonstrates normal overall signal. Spinal Cord: Visualized spinal cord has normal size and signal. No cerebellar tonsillar herniation. Paraspinous Soft Tissues: No paravertebral masses. Prevertebral soft tissues are normal in thickness. C2-C3: Normal appearance. C3-C4: Normal appearance. C4-C5: Normal appearance. C5-C6: Posterior disc osteophyte complex results in moderate central stenosis with flattening the ventral surface of the cord. No foraminal stenosis. C6-C7: Posterior disc osteophyte complex results in mild central stenosis. No foraminal stenosis. C7-T1: Normal appearance. IMPRESSION: Degenerative disc disease at C5-6 results in moderate central stenosis, increased from the prior Approved by: Basilio Rosario M.D. on 02/16/2024 at 12:19
== END ==
PROVIDERS: Family Provider Family Medicine; PCP Physician Assistant; Referring Provider Family Medicine; Visit Provider Family Medicine
DX: M50.322 Other cervical disc degeneration at C5-C6 level (principal); M48.02 Spinal stenosis, cervical region
CPT/HCPCS: 72141